=== PATIENT | male | born 1960 | race Caucasian/White ===

== ENCOUNTER 2018-12-16 15:59 | Inpatient (IN) | payer BC ==
--- NOTE | 2018-12-16 16:18 | PDOC ---
Rapid Medical Evaluation Time Seen by Provider: 12/16/18 16:13 Medical Evaluation: Allergies Allergy/AdvReac Type Severity Reaction Status Date / Time No Known Allergies Allergy Verified 12/16/18 16:13 12/16/18 16:13 Pt c/o: fevr since wednesday evening 104,took tylenol this am, headache x 2 days, rash to back x 2 weeks, - swabs, on abx can't recall Pt on brief exam:100.7, 102, noted scattered papular rash to back and upper arms Pt ordered for: labs, urine, blood cx, lactic acid Pt proceed to the ED Discharge Disposition - Diagnosis Sepsis, CHE (acute kidney injury), Folliculitis - Referrals - Patient Instructions - Post Discharge Activity
[2018-12-16] MEDS ORDERED: SODIUM CHLORIDE 1,000 ML IV STA (16:19)
[2018-12-16] MEDS ORDERED: ACETAMINOPHEN 500 MG TABLET (FP) PO ONE (16:19)
[2018-12-16 17:00] LABS: BASO % 0.1 % (0-2.0); EOS % 7.6 % (0-4.5); HEMATOCRIT 39.3 % (35.4-49); HEMOGLOBIN 13.6 GM/dL (11.7-16.9); LYMPH % 6.9 % (8-40); MCH 31.5 pg (25.7-33.7); MCHC 34.7 g/dl (32.0-35.9); MEAN CELL VOLUME 90.8 fl (80-96); MEAN PLT VOLUME 8.1 fl (7.5-11.1); MONO % 9.6 % (3.8-10.2); NEUT % 75.8 % (42.8-82.8); PLATELET COUNT 142 K/MM3 (134-434); RBC 4.33 M/mm3 (4.00-5.60); RDW 14.8 % (11.9-15.9); WHITE BLOOD COUNT 4.3 K/mm3 (4.0-10.0)
[2018-12-16 17:30] LABS: ALBUMIN 3.5 g/dl (3.4-5.0); ALK PHOS 84 U/L (45-117); ANION GAP 5 MMOL/L (8-16); BILIRUBIN,TOTAL 0.4 mg/dL (0.2-1); BLOOD UREA NITROGEN 28.3 mg/dL (7-18); CALCIUM 8.2 mg/dL (8.5-10.1); CHLORIDE 104 mmol/L (98-107); CO2 27 mmol/L (21-32); CREATININE 2.2 mg/dL (0.55-1.3); GLUCOSE,RANDOM 89 mg/dL (74-106); POTASSIUM 4.6 mmol/L (3.5-5.1); SGOT/AST 25 U/L (15-37); SGPT/ALT 31 U/L (13-61); SODIUM 137 mmol/L (136-145); TOT PROT 6.6 g/dl (6.4-8.2)
[2018-12-16] MEDS ORDERED: ACETAMINOPHEN 325 MG TABLET (FP) ONE (17:51)
--- NOTE | 2018-12-16 17:52 | PDOC ---
History of Present Illness - General Stated Complaint: HIGH FEVER Time Seen by Provider: 12/16/18 16:13 - History of Present Illness Initial Comments: 12/16/18 17:51 58 yo M PMH HTN, HLD, BPH, osteoarthritis s/p multiple L knee and R knee replacements, diastasis recti with multiple fat-filled umbilical and inguinal hernias, known rash since 11/05/18, checked 11/07/18 with negative VZV and negative HIV, concern for possible hot tub folliculitis on some abx (patient unsure what), presenting with fever since Wednesday. Patient reports that it is only when he is lying down, and resolves after walking around. Had also been responsive to Tylenol until today, when it remained 103.4F despite treatment. Patient reports for the past 3 days, he has had incomplete voiding of urine, going frequently and only getting small amounts of urine out each time. Further complains of fatigue and SOB with exertion for indeterminate time period. Further endorses ongoing nausea w/o vomiting, reduced appetite, and THORNTON. Denies CP, abdominal pain, constipation/diarrhea. Past History - Past Medical History Allergies/Adverse Reactions: Allergies Allergy/AdvReac Type Severity Reaction Status Date / Time No Known Allergies Allergy Verified 12/16/18 16:13 Home Medications: Ambulatory Orders Amitriptyline HCl [Elavil -] 20 mg PO HS 12/16/18 Atorvastatin Calcium [Lipitor] 10 mg PO HS 12/16/18 Celecoxib [Celebrex] 200 mg PO BID 12/16/18 Cyclobenzaprine HCl 10 mg PO TID 12/16/18 Gabapentin 600 mg PO QID 12/16/18 HYDROmorphone [Dilaudid -] 2 mg PO BID PRN 12/16/18 Lisinopril 10 mg PO DAILY 12/16/18 Sulfamethoxazole/Trimethoprim [Bactrim Ds -] 1 tab PO BID 12/16/18 Valacyclovir HCl [Valtrex -] 1 tab PO TID 12/16/18 Anemia: No Asthma: No Cancer: No Cardiac Disorders: No CVA: No COPD: No CHF: No Dementia: No Diabetes: No GI Disorders: No Disorders: No HTN: No Hypercholesterolemia: No Liver Disease: No Seizures: No Thyroid Disease: No - Surgical History Abdominal Surgery: Yes (LAPAROSCOPIC BAND PLACEMENT AND REMOVAL) Appendectomy: No Cardiac Surgery: No Cholecystectomy: No Lung Surgery: No Neurologic Surgery: No Orthopedic Surgery: Yes (RIGHT KNEE REPLACEMENT REVISION AND MULTIPULE KNEE SURGERY,) - Psycho Social/Smoking Cessation Hx Smoking History: Former smoker Have you smoked in the past 12 months: No Number of Cigarettes Smoked Daily: 16 If you are a former smoker, when did you quit?: JAN 13 2001 Information on smoking cessation initiated: No Hx Alcohol Use: Yes (RARE) Drug/Substance Use Hx: Yes Substance Use Type: Alcohol, Prescribed Hx Substance Use Treatment: No Review of Systems - Review of Systems Able to Perform ROS?: Yes Constitutional: Yes: Fever. No: Chills, Diaphoresis HEENTM: No: Recent change in vision, Hearing Loss, Throat Swelling, Mouth Pain, Difficulty Swallowing Respiratory: Yes: Cough (raspy), SOB with Exertion. No: Orthopnea, Shortness of Breath Cardiac (ROS): No: Chest Pain, Edema, Irregular Heart Rate, Lightheadedness, Palpitations, Chest Tightness ABD/GI: Yes: Nausea (chronic), Poor Appetite. No: Constipated, Diarrhea, Vomiting : Yes: Other (incomplete voiding) Neurological: Yes: Headache. No: Numbness, Tingling, Tremors, Weakness *Physical Exam - Vital Signs Last Vital Signs Temp Pulse Resp BP Pulse Ox 100.7 F H 106 H 20 109/70 97 12/16/18 16:16 12/16/18 16:16 12/16/18 16:16 12/16/18 16:16 12/16/18 16:16 ED Treatment Course - LABORATORY CBC & Chemistry Diagram: 12/16/18 16:34 12/16/18 16:34 - ADDITIONAL ORDERS Additional order review: Laboratory Results 12/16/18 12/16/18 16:35 16:34 Sodium 137 Potassium 4.6 Chloride 104 Carbon Dioxide 27 Anion Gap 5 L BUN 28.3 H Creatinine 2.2 H Est GFR (CKD-EPI)AfAm 36.90 Est GFR (CKD-EPI)NonAf 31.84 Random Glucose 89 Lactic Acid 2.1 H Calcium 8.2 L Total Bilirubin 0.4 AST 25 ALT 31 Alkaline Phosphatase 84 Total Protein 6.6 Albumin 3.5 12/16/18 16:34 RBC 4.33 MCV 90.8 MCHC 34.7 RDW 14.8 MPV 8.1 Neutrophils % 75.8 Lymphocytes % 6.9 L D Monocytes % 9.6 Eosinophils % 7.6 H D Basophils % 0.1 - Medications Given in the ED: ED Medications Discontinued Medications Generic Name Dose Route Start Last Admin Trade Name John PRN Reason Stop Dose Admin Acetaminophen 975 mg 12/16/18 16:19 12/16/18 17:47 Tylenol - PO 12/16/18 16:20 975 mg ONCE ONE Administration Sodium Chloride 1,000 mls @ 1,000 mls/hr 12/16/18 16:19 12/16/18 17:47 Normal Saline - IV 12/16/18 17:18 1,000 mls/hr ASDIR STA Administration Medical Decision Making - Medical Decision Making 12/16/18 17:56 Concern for fever 2/2 UTI. - CBC, CMP, BNP, trop, lactic acid - Chest X ray - tylenol POCUS bladder scan with 117 ml, enlarged prostate, no hydronephrosis, large L renal cyst. 12/16/18 17:57 Lactic acid 2.2, Cr 2.2 from normal baseline. CHE, likely UTI sepsis 2/2 postrenal etiology. 12/16/18 18:41 EKG normal sinus at 91 bpm. 12/16/18 18:55 CXR no acute pathology. 12/16/18 19:09 CT chest for fatigue/SOB. 12/16/18 20:47 CT chest with multiple findings. Areas of interstitial thickening in R middle lobe suggestive of small infiltrates, multiple small noncalcified b/l pulmonary nodules requiring follow-up CT in 3 months, mildly prominent subcarinal mediatinal lymph node requiring same follow up, 4.5 X 3cm lesion in R lower paratracheal region concerning for large thyroid nodule. Discharge - Discharge Information Problems reviewed: Yes Clinical Impression/Diagnosis: Sepsis, CHE (acute kidney injury), Folliculitis - Follow up/Referral Referrals: Citlalli Yu MD [Primary Care Provider] - - Patient Discharge Instructions - Post Discharge Activity
[2018-12-16] MEDS ORDERED: VANCOMYCIN 1 GM in D5W (PRE-DOCKED) 1,000 MG/250 ML IVPB ONE (19:08)
--- NOTE | 2018-12-16 19:18 | PDOC ---
Documentation entered by Jose Carlos Reyes SCRIBE, acting as scribe for Gerald Anders MD. Gerald Anders MD: This documentation has been prepared by the Eric blanco Daniel, SCRIBE, under my direction and personally reviewed by me in its entirety. I confirm that the documentation accurately reflects all work, treatment, procedures, and medical decision making performed by me. Attending Attestation - Resident Resident Name: OroscoGabrieleton - ED Attending Attestation I have performed the following: I have examined & evaluated the patient, The case was reviewed & discussed with the resident, I agree w/resident's findings & plan - HPI HPI: 12/16/18 17:43 The patient is a 58 year old male with a past medical history of HTN, spinal spondylosis, hernia, ruptured disc, and HLD here today for evaluation of fever since wednesday (12/13/18). The patient reports that he has had a fever since wednesday which was alleviated with tylenol except today and he noted his temperature to be 103.9. Patient states that his fever is intermittent and his temperature only spikes when he is sleeping. He reports chills when he has a fever and diaphoresis when his fever subsides. Patient states that he has had poor PO intake recently due to nausea. He also notes a diffuse rash across his chest, back, and right arm for the past 2 weeks. He also reports feeling fatigued recently especially when climbing stairs and notes dyspnea on exertion. Patient denies headache, lightheadedness. Denies chills. Denies vomiting, diarrhea, abdominal pain. Allergies: NKA PCP: Citlalli Yu - Physicial Exam PE: 12/16/18 18:53 GENERAL: The patient is awake, alert, and fully oriented, in no acute distress. HEAD: Normal with no signs of trauma. EYES: Pupils equal, round and reactive to light, extraocular movements intact, sclera anicteric, conjunctiva clear with no pallor. ENT: Ears normal, nares patent, oropharynx clear without exudates. Moist mucous membranes. NECK: Normal range of motion, supple without lymphadenopathy, JVD, or masses. LUNGS: Breath sounds equal, clear to auscultation bilaterally. No wheeze/ crackles. HEART: Regular rate and rhythm, normal S1 and S2 without murmur or rub. ABDOMEN: +abdominal hernia as noted in resident exam. Soft/nontender/ nondistended. BS wnl. No guarding or rebound. No hepatosplenomegaly. EXTREMITIES: Normal range of motion, no edema. No clubbing or cyanosis. No cords, erythema, or tenderness. NEUROLOGICAL: Cranial nerves II through XII grossly intact. Normal speech, normal gait. PSYCH: Normal mood, normal affect. SKIN: +scattered folliculitis on the face, upper extremities, chest, and back. Warm, Dry, normal turgor. - Medical Decision Making 12/16/18 19:10 58-year-old male with history of hypertension and high cholesterol presents with 1 to 2 weeks of progressive generalized weakness and fatigue with exertion , sleeping most of the day, sob with exertion but no chest pain. no focal infectious sxs, had exacerbation of his folliculitis and started on abx by urgent care, who also tested labs/cxr/HIV and wnl. fever/tachy, resolved after tylenol Exam as noted, lungs are clear, no edema or calf tenderness 58-year-old male with hypertension and high cholesterol, distant smoking history p/w subacute generalized weakness and fatigue and now fever x3d. no source on history/exam, ? metabolic/endocrine, ? neoplasm, ? cardiac. low risk for PE, lower suspicion given he fevers. labs, ua ekg, cxr without acute pathology --> ct chest empiric abx admit 12/16/18 19:32 labs notable for acute renal injury, cxr clear with ct chest pending. add on TSH empiric with gram + coverage for the folliculitis. Heart Score/ECG Review #1 ECG reviewed & interpreted by me at: 18:35 General ECG Interpretation: Sinus Rhythm, Normal Rate (91), Normal Intervals ( qtc 403), No acute ischemic changes
[2018-12-16] MEDS: PIPERACILLIN/TAZOB 3.375 GM 3.375 GM in DEXTROSE 5%-WATER - 50 ML IVPB SCH (19:31)
[2018-12-16] MEDS ORDERED: PIPERACILLIN/TAZOB 3.375 GM 3.375 GM/50 ML BAG IVPB ONE (19:42)
[2018-12-16] MEDS ORDERED: VANCOMYCIN 1 GRAM (PRE-DOCKED) 1,000 MG/250 ML BAG IVPB ONE (19:42)
[2018-12-16 21:41] LABS: URINE APPEARANCE CLOUDY; URINE BILIRUBIN NEGATIVE (NEGATIVE); URINE COLOR YELLOW; URINE GLUCOSE (UA) NEGATIVE (NEGATIVE); URINE KETONE NEGATIVE (NEGATIVE); URINE LEUK ESTERASE NEGATIVE (NEGATIVE); URINE NITRITE NEGATIVE (NEGATIVE); URINE PROTEIN NEGATIVE (NEGATIVE); URINE UROBILINOGEN 0.2 mg/dL (0.2-1.0)
--- NOTE | 2018-12-16 22:43 | PN ---
Teaching Attending Note Name of Resident: Vanita Parker ATTENDING PHYSICIAN STATEMENT I saw and evaluated the patient. I reviewed the resident's note and discussed the case with the resident. I agree with the resident's findings and plan as documented. SUBJECTIVE: 58 yo M PMH HTN, HLD, BPH, osteoarthritis complains of rash which started on his back and chest that he noticed on December 07. Rash was vesicular papular and started on his back and chest and extended to abdomen and lesser involvement on his extremities. It was mildly painful and nonpruritic. He was seen in urgent care that day and prescribed Valtrex and Bactrim. As per patient he was measles, mumps, rubella, HIV were ruled out. He claims that he was tested also for VZV and that was negative however documentation at this time is lacking. Patient also stated that department of health and [facility] were involved and he was allegedly cleared to leave the urgent care center. He complained of high fevers which started this past Wednesday on 13 December. Fevers he measured were up to 104 Fahrenheit and cyclical. Associated with severe headache. He denied any recent exotic travels. He mentioned that he traveled to [facility] recently however did not go on any water rides or hot tubs. No exposure to animals and no take or other insect bites that he had noted. Patient also endorses photophobia and nausea. He lives with his and children and reported that his family members are healthy.He also reported that he had chickenpox as a child. Patient was treated empirically with vancomycin and Zosyn in the emergency department. OBJECTIVE: Last Vital Signs Temp Pulse Resp BP Pulse Ox 99.3 F 95 H 17 131/77 100 12/16/18 21:52 12/16/18 21:52 12/16/18 21:52 12/16/18 21:52 12/16/18 21:52 GENERAL: Well developed, well nourished. Awake and alert. No acute distress. HEENT: Normocephalic, atraumatic. PERRLA, EOMI. No conjunctival pallor. Sclera are non- icteric. Moist mucous membranes. Oropharynx is clear. No Koplik spots identified NECK: Supple. Full ROM. No JVD. Carotid pulses 2+ and symmetric, without bruits. No thyromegaly. No lymphadenopathy. CARDIOVASCULAR: Regular rate and rhythm. No murmurs, rubs, or gallops. Distal pulses are 2+ and symmetric. PULMONARY: No evidence of respiratory distress. Lungs clear to auscultation bilaterally. No wheezing, rales or rhonchi. ABDOMINAL: Soft. Obese Non-tender. Non-distended. No rebound or guarding. No organomegaly. Normoactive bowel sounds. MUSCULOSKELETAL Normal range of motion at all joints. No bony deformities or tenderness. No CVA tenderness. EXTREMITIES: No cyanosis. No clubbing. No edema. No calf tenderness. SKIN: Vesicular lesions noted on back, chest, abdomen, less so on arms and lower extremities. Some lesions are crusted however there are also fresh vesicular lesions. NEUROLOGICAL: Kernig and Brudzinski signs were negative. There are no nuchal rigidity appreciated. No focal neurological deficits PSYCHIATRIC: Cooperative. Good eye contact. Appropriate mood and affect. Abnormal Lab Results 12/16/18 12/16/18 12/16/18 16:34 16:34 16:35 Lymphocytes % 6.9 L D Eosinophils % 7.6 H D Anion Gap 5 L BUN 28.3 H Creatinine 2.2 H Lactic Acid 2.1 H Calcium 8.2 L Imaging studies reviewed CT of chest was appreciated was noted to have a 1 x 0.4 cm noncalcified pleural- based nodule along posterior border of right oblique fissure at the level of mid to lower chest. Mildly prominent subcarinal mediastinal lymph node is noted with a 1 cm short axis diameter. Focal low-attenuation lesion within the right lower paratracheal region measuring at least 4.5 x 3 cm probably representing a large thyroid nodule ASSESSMENT AND PLAN: 58-year-old male with Sepsis, cyclic fevers severe headache and vesicular rash on torso, abdomen, extremities highly suspicious for varicella. Very characteristic rash.Severe headache and photophobia along with cyclic fevers are worrisome for possible [employer] involvement such as VZV encephalitis/ meningitis.At this time patient is believed to be immunocompetent.Differential diagnosis at this time is limited however Rickettsia may also be ruled out. There may have been seeded bacteremia from scratching of rash. Noted to have slight eosinophilia however low suspicion for drug rash or parasitic component at this time. No history of exotic travel. Admit to [facility] Blood cultures x2 Head CT UA and urine culture Airborne and contact isolation ID consult Neurology consult for LP CSF must be sent for protein, glucose, cell count with differential, Gram stain , culture, encephalitis/meningitis multiplex PCR, HSV 1 and 2 PCR, VZV PCR IV acyclovir renally dosed Ampicillin IV renally dosed Ceftriaxone 2 g stat Vancomycin by levels Obtain medical records that were from urgent care center HIV serology if not done at urgent care Rickettsia serology Respiratory multiplex PCR IV fluid hydration Repeat lactate #AKImay be secondary to sepsis syndrome IV fluid hydration Avoid nephrotoxins Renal sonogram #4.5 x 3 cm probably representing a large thyroid nodule TSH Thyroid sonogram DVT prophylaxis with heparin subcu
--- NOTE | 2018-12-16 23:08 | HP ---
CHIEF COMPLAINT: Intermittent fevers PCP: Dr. Yu HISTORY OF PRESENT ILLNESS: Patient is a 58 year old male with PMH of HTN, spinal sponylosis, hernia, and HLD who presents with 4 days of intermittent fevers. Pt reports that his fevers occur when he lays down to sleep and are associated with chills, but alleviate when he stands and walks around. He endorses general malaise and decreased po intake since the onset of fevers. He complains of headaches and photophobia as well as 2 episodes of NBNB vomiting. Denies any diarrhea or abd pain. He also complains of urinary frequency but can only urinate a small amount at a time. Of note, pt developed a diffuse rash/excoriations on his back, chest, and face about 10 days ago. The rash is painful and itchy. He went to urgent care where blood tests were done, all of which were negative (measles, mumps, varicella, HIV). Per pt, he was started on Valtrex and completed his prescription, but the rash did not improve. He states that his doctor then started him on Bactrim for Hot Tub Folliculitis. He has been taking bactrim for 3 days (today is 4th day). Pt reports that he received the chicken pox as a child and is up to date on all other vaccinations. ER course was notable for: (1) Febrile, tachycardic, lactate 2.1 (2) Given 1gm vanc and 3.375gm Q8H zosyn (3) Recent Travel: denies PAST MEDICAL HISTORY: As above PAST SURGICAL HISTORY: None Social History: Smoking: denies Alcohol: denies Drugs: denies Allergies No Known Allergies Allergy (Verified 12/16/18 16:13) HOME MEDICATIONS: Home Medications Medication Instructions Recorded Amitriptyline HCl [Elavil -] 20 mg PO HS 12/16/18 Atorvastatin Calcium [Lipitor] 10 mg PO HS 12/16/18 Celecoxib [Celebrex] 200 mg PO BID 12/16/18 Cyclobenzaprine HCl 10 mg PO TID 12/16/18 Gabapentin 600 mg PO QID 12/16/18 HYDROmorphone [Dilaudid -] 2 mg PO BID PRN 12/16/18 Lisinopril 10 mg PO DAILY 12/16/18 Sulfamethoxazole/Trimethoprim 1 tab PO BID 12/16/18 [Bactrim Ds -] Valacyclovir HCl [Valtrex -] 1 tab PO TID 12/16/18 REVIEW OF SYSTEMS CONSTITUTIONAL: fever, chills, diaphoresis Absent: generalized weakness, malaise, loss of appetite, weight change HEENT: Absent: rhinorrhea, nasal congestion, throat pain, throat swelling, difficulty swallowing, mouth swelling, ear pain, eye pain, visual changes CARDIOVASCULAR: Absent: chest pain, syncope, palpitations, irregular heart rate, lightheadedness , peripheral edema RESPIRATORY: cough Absent: shortness of breath, dyspnea with exertion, orthopnea, wheezing, stridor , hemoptysis GASTROINTESTINAL: vomiting, decreased appetite Absent: abdominal pain, abdominal distension, nausea, diarrhea, constipation, melena, hematochezia GENITOURINARY: hesitancy, frequency Absent: dysuria, urgency, hematuria, flank pain, genital pain MUSCULOSKELETAL: Absent: myalgia, arthralgia, joint swelling, back pain, neck pain SKIN: rash, itching Absent: pallor HEMATOLOGIC/IMMUNOLOGIC: Absent: easy bleeding, easy bruising, lymphadenopathy, frequent infections ENDOCRINE: Absent: unexplained weight gain, unexplained weight loss, heat intolerance, cold intolerance NEUROLOGIC: Absent: headache, focal weakness or paresthesias, dizziness, unsteady gait, seizure, mental status changes, bladder or bowel incontinence PSYCHIATRIC: Absent: anxiety, depression, suicidal or homicidal ideation, hallucinations. PHYSICAL EXAMINATION Vital Signs - 24 hr 12/16/18 16:16 Temperature 100.7 F H Pulse Rate 106 H Respiratory 20 Rate Blood Pressure 109/70 O2 Sat by Pulse 97 Oximetry (%) GENERAL: Awake, alert, and fully oriented, in no acute distress. HEAD: Normal with no signs of trauma. EYES: Pupils equal, round and reactive to light, extraocular movements intact, sclera anicteric, conjunctiva clear. No lid lag. EARS, NOSE, THROAT: Ears normal, nares patent, oropharynx clear without exudates. Moist mucous membranes. NECK: Normal range of motion, supple without lymphadenopathy, JVD, or masses. LUNGS: Coarse breath sounds. No wheezes, and no crackles. No accessory muscle use. HEART: Regular rate and rhythm, normal S1 and S2 without murmur, rub or gallop. ABDOMEN: Soft, nontender, not distended, normoactive bowel sounds, no guarding, no rebound, No hepatomegaly or splenomegaly. Reducible epigastric, umbilical, and inguinal hernias. MUSCULOSKELETAL: Normal range of motion at all joints. No bony deformities or tenderness. No CVA tenderness. UPPER EXTREMITIES: 2+ pulses, warm, well-perfused. No cyanosis. No clubbing. No peripheral edema. LOWER EXTREMITIES: 2+ pulses, warm, well-perfused. No calf tenderness. No peripheral edema. NEUROLOGICAL: Cranial nerves II-XII intact. Normal speech. Normal gait. PSYCHIATRIC: Cooperative. Good eye contact. Appropriate mood and affect. SKIN: Scattered folliculitis on back, chest, and face. Several lesions are scabbed. Laboratory Results - last 24 hr CBC, BMP 12/16/18 16:34 12/16/18 16:34 ASSESSMENT/PLAN: Patient is a 58 year old male with PMH of HTN, spinal sponylosis, hernia, and HLD who presents with 4 days of intermittent fevers and diffuse folliculitis. #Sepsis, unknown source Given pt's headache, photophobia, and rash, cannot r/o meningitis/ encephalitis CT head ordered Start acyclovir 1gm, ampicillin 2gm, ceftriaxone 1gm, and zosyn 3.75mg Q8H empirically UA: negative CXR: no acute pathology CT chest: small infiltrates in within R middle lobe, small noncalcified nodules, mild prominent mediastinal lymph node, fodal low-attenuation lesion in R lower lobe probably a large thyroid nodule. F/u blood and urine cx F/u ESR and CRP Neuro consulted ID consulted Airborne precautions F/u [place] records #CHE likely 2/2 sepsis and vol depletion Cr: 2.2 Hydrate @ IV NS 150ml/hr Cont to monitor kidney function #Incidental CT findings Large thyroid nodule: F/u TSH Recommend US of thyroid Noncalcified nodules Recommend pulm f/u outpt #HTN Resume home meds when hemodynamically stable #HLD Cont lipitor 10mg HS #DVT ppx Heparin SQ TID #FEN Sodium controlled diet IV NS @ 150ml/hr #Dispo Monitor on med-surg ATTENDING PHYSICIAN STATEMENT I saw and evaluated the patient. I reviewed the resident's note and discussed the case with the resident. I agree with the resident's findings and plan as documented. SUBJECTIVE: OBJECTIVE: ASSESSMENT AND PLAN:
[2018-12-16] MEDS ORDERED: CEFTRIAXONE 1,000 MG in DEXTROSE 5%-WATER - 50 ML IVPB ONE (23:18)
[2018-12-17] MEDS ORDERED: ONDANSETRON 4 MG/2 ML VIAL IVPB ONE (01:32)
[2018-12-17] MEDS ORDERED: ACETAMINOPHEN 1000 MG/100 ML VIAL (NON FORMULARY) IVPB ONE ×3 (01:33→19:03)
[2018-12-17] MEDS ORDERED: PIPERACILLIN/TAZOBACTAM 3.375 GM VIAL IVPB ONE (01:44)
[2018-12-17] MEDS ORDERED: DEXTROSE 5%-WATER - 50 ML IVPB ONE ×2 (01:45→09:05)
[2018-12-17] MEDS: HEPARIN NA (PORCINE) 5,000 UNITS/ML 1ML VIAL SQ SCH ×2 (02:16→06:54)
[2018-12-17] MEDS: PIPERACILLIN/TAZOB 3.375 GM 3.375 GM in DEXTROSE 5%-WATER - 50 ML IVPB SCH (02:18)
[2018-12-17] MEDS ORDERED: ACYCLOVIR INJECTION 1,000 MG in DEXTROSE 5%-WATER - 100 ML IVPB SCH (02:30)
[2018-12-17] MEDS ORDERED: AMPICILLIN - 2 GM in SODIUM CHLORIDE 100 ML IVPB SCH (03:00)
[2018-12-17] MEDS: SODIUM CHLORIDE 1,000 ML IV SCH ×2 (05:22→20:37)
[2018-12-17] MEDS: ACYCLOVIR INJECTION 800 MG in DEXTROSE 5%-WATER - 250 ML IVPB SCH ×3 (05:24→20:37)
[2018-12-17] MEDS: AMPICILLIN - 2 GM in SODIUM CHLORIDE 100 ML IVPB SCH ×2 (06:53→09:20)
[2018-12-17] MEDS ORDERED: cefTRIAXone SODIUM 1 GM VIAL ONE (09:05)
[2018-12-17] MEDS ORDERED: PT OWN MED DRAWER 7, Y5N ONE ×5 (09:05→21:28)
[2018-12-17] MEDS ORDERED: CEFTRIAXONE 1 GM in DEXTROSE 5%-WATER - 50 ML IVPB SCH (10:00)
[2018-12-17] MEDS: ONDANSETRON 4 MG/2 ML VIAL IVPUSH PRN ×2 (10:44→19:50)
[2018-12-17 10:58] LABS: COCAINE, UR NEGATIVE ng/ml (CUTOFF=300); METHADONE, UR NEGATIVE ng/ml (CUTOFF=300); PHENCYCLIDINE,URINE NEGATIVE ng/ml (CUTOFF=25); URINE AMPHETAMINES NEGATIVE ng/ml (CUTOFF=500); URINE BARBITURATES NEGATIVE ng/ml (CUTOFF=200); URINE BENZODIAZEPINES NEGATIVE ng/ml (CUTOFF=200)
[2018-12-17 11:01] LABS: OPIATES, URI POSITIVE ng/ml (CUTOFF=300)
[2018-12-17 11:11] LABS: BASO % 0.3 % (0-2.0); EOS % 8.5 % (0-4.5); HEMATOCRIT 36.6 % (35.4-49); HEMOGLOBIN 12.3 GM/dL (11.7-16.9); LYMPH % 11.9 % (8-40); MCH 30.2 pg (25.7-33.7); MCHC 33.7 g/dl (32.0-35.9); MEAN CELL VOLUME 89.8 fl (80-96); MEAN PLT VOLUME 7.6 fl (7.5-11.1); MONO % 11.1 % (3.8-10.2); NEUT % 68.2 % (42.8-82.8); PLATELET COUNT 126 K/MM3 (134-434); RBC 4.07 M/mm3 (4.00-5.60); RDW 14.9 % (11.9-15.9); WHITE BLOOD COUNT 3.3 K/mm3 (4.0-10.0)
--- NOTE | 2018-12-17 12:16 | PN ---
Progress Note (short form) - Note Progress Note: ID consult dictated over one hour spent in the care of this patient 58 yo man on disability due to chronic pain issues went to [facility] on WednesdayDecember 03 for [place]- no water exposure on Wednesday he developed a rash on his back /shoulder and face, no fevers-very painful on Wednesday [facility] and was evaluated for his rash- they were concerned about possible varicella- he was started on valtrex and went home on isolation varicella PCR was negative and HIV was negative [facility] was contacted and he had the vesicles swabbed- he was contacted by Gem from [facility] on Saturday 12/09 and told his isolation was discontinued he was contacted by Dr Powers from [facility] and placed on bactrim on Wednesday for possible folliculitis hsi rash has improved per his family on Wednesday he started having persistent bitemporal headache and high grade fevers with nausea that has continued to he came to ED last night no vomiting no diarrhea +constipation confirms rash is improved he has completed one week of valtrex and is taking bactrim- last dose was yesterday am he is alert, not confused no nuchal rigidity with persistent fevers and severe headache for 4 days I think it would be reasonable to do an LP to r/o viral meningitis doubt hsv or varicella as he has completed one week of valtrex will hold further acyclovir given elevated creatinine and negative workup by elvira and [facility] would send LP for cell count, glucose, protein, routine culture and viral encephalitis panel-routine viral panel - hsv and vzv pcr too would repeat HIV testing will send tick workup given leukopenia ?viral exanthem- consider dermatolgy evaluation lastly this could all be bactrim allergy with eosinophilia and fever/headache ( but diagnosis of exclusion) will treat with rocephin/doxy/vancomycin await LP (d/w hospitalist) continue isolation check RPR too I reviewed labs from [facility] and spoke to dr powers there I d/w patient and at bedside I d/w hospitalist Problem List - Problems (1) Fever Code(s): R50.9 - FEVER, UNSPECIFIED (2) Headache Code(s): R51 - HEADACHE (3) Rash and nonspecific skin eruption Code(s): R21 - RASH AND OTHER NONSPECIFIC SKIN ERUPTION
[2018-12-17 12:40] LABS: ERYTHROCYTE SEDIMENTATION RATE 13 mm/hr (0-20)
[2018-12-17 12:42] VITALS: BMI 33.6
[2018-12-17 13:17] LABS: ALBUMIN 2.9 g/dl (3.4-5.0); BILIRUBIN,TOTAL 0.4 mg/dL (0.2-1); BLOOD UREA NITROGEN 16.6 mg/dL (7-18); CALCIUM 7.5 mg/dL (8.5-10.1); CREATININE 1.3 mg/dL (0.55-1.3); POTASSIUM 3.6 mmol/L (3.5-5.1); TOT PROT 5.7 g/dl (6.4-8.2)
[2018-12-17] MEDS ORDERED: DEXTROSE 5%-WATER 100 ML IVPB ONE ×2 (14:02→21:08)
[2018-12-17 14:22] LABS: ALBUMIN 3.2 g/dl (3.4-5.0); BILIRUBIN,TOTAL 0.4 mg/dL (0.2-1); BLOOD UREA NITROGEN 16.9 mg/dL (7-18); CREATININE 1.4 mg/dL (0.55-1.3); MAGNESIUM 2.1 mg/dL (1.8-2.4); PHOSPHOROUS 2.9 mg/dL (2.5-4.9); POTASSIUM 4.2 mmol/L (3.5-5.1); TOT PROT 6.1 g/dl (6.4-8.2)
[2018-12-17 14:29] LABS: INR 1.03 (0.83-1.09); PROTHROMBIN TIME (PATIENT) 12.1 SEC (9.7-13.0)
[2018-12-17] MEDS: DOXYCYCLINE INJECTION 100 MG in DEXTROSE 5%-WATER - 100 ML IVPB SCH ×2 (14:34→21:29)
[2018-12-17] MEDS: CEFTRIAXONE 2 GM in DEXTROSE 5%-WATER 100 ML IVPB SCH ×2 (14:35→21:26)
--- NOTE | 2018-12-17 14:53 | PN ---
Progress Note (short form) - Note Progress Note: SUBJECTIVE: Complains of fevers, headache, light sensitivity. Rash resolving. No neck stiffness. No limb numbness/weakness. No seizures. Wants to leave to repair the heat and water in his home. OBJECTIVE: Afebrile, Hemodynamically Stable. Last Vital Signs Temp Pulse Resp BP Pulse Ox 98.0 F 87 18 117/61 96 12/17/18 09:17 12/17/18 09:17 12/17/18 09:17 12/17/18 09:17 12/16/18 23:00 HEENT - Atraumatic, Normocephalic Heart - S1, S2, RRR Lungs - clear to auscultation Abdomen - Soft, non-tender. Bowel Sounds normal. Extremities - no edema, no calf tenderness. Skin - resolving vesicular rash over torso and UEs. Neuro - AAO x 3. Tone/Power normal all extremities. Laboratory Results - last 24 hr 12/16/18 12/16/18 12/16/18 16:34 16:34 16:34 WBC 4.3 RBC 4.33 Hgb 13.6 Hct 39.3 MCV 90.8 MCH 31.5 MCHC 34.7 RDW 14.8 Plt Count 142 D MPV 8.1 Absolute Neuts (auto) 3.3 Neutrophils % 75.8 Lymphocytes % 6.9 L D Monocytes % 9.6 Eosinophils % 7.6 H D Basophils % 0.1 Nucleated RBC % 0 ESR PT with INR INR Sodium 137 Potassium 4.6 Chloride 104 Carbon Dioxide 27 Anion Gap 5 L BUN 28.3 H Creatinine 2.2 H Est GFR (CKD-EPI)AfAm 36.90 Est GFR (CKD-EPI)NonAf 31.84 Random Glucose 89 Hemoglobin A1c % Lactic Acid Calcium 8.2 L Phosphorus Magnesium Total Bilirubin 0.4 AST 25 ALT 31 Alkaline Phosphatase 84 Creatine Kinase 113 Troponin I < 0.02 C-Reactive Protein Total Protein 6.6 Albumin 3.5 TSH Urine Color Urine Appearance Urine pH Ur Specific [place] Urine Protein Urine Glucose (UA) Urine Ketones Urine Blood Urine Nitrite Urine Bilirubin Urine Urobilinogen Ur Leukocyte Esterase Random Vancomycin Opiates Screen Methadone Screen Barbiturate Screen Phencyclidine Screen Ur Amphetamines Screen MDMA (Ecstasy) Screen Benzodiazepines Screen Cocaine Screen U Marijuana (THC) Screen Influenza A (Rapid) Negative Influenza B (Rapid) Negative 12/16/18 12/16/18 12/17/18 16:35 21:00 06:00 WBC RBC Hgb Hct MCV MCH MCHC RDW Plt Count MPV Absolute Neuts (auto) Neutrophils % Lymphocytes % Monocytes % Eosinophils % Basophils % Nucleated RBC % ESR PT with INR INR Sodium Potassium Chloride Carbon Dioxide Anion Gap BUN Creatinine Est GFR (CKD-EPI)AfAm Est GFR (CKD-EPI)NonAf Random Glucose Hemoglobin A1c % Lactic Acid 2.1 H Calcium Phosphorus Magnesium Total Bilirubin AST ALT Alkaline Phosphatase Creatine Kinase Troponin I C-Reactive Protein Total Protein Albumin TSH Urine Color Yellow Urine Appearance Cloudy Urine pH 5.0 Ur Specific [place] 1.022 Urine Protein Negative Urine Glucose (UA) Negative Urine Ketones Negative Urine Blood Negative Urine Nitrite Negative Urine Bilirubin Negative Urine Urobilinogen 0.2 Ur Leukocyte Esterase Negative Random Vancomycin 2.4 L Opiates Screen Methadone Screen Barbiturate Screen Phencyclidine Screen Ur Amphetamines Screen MDMA (Ecstasy) Screen Benzodiazepines Screen Cocaine Screen U Marijuana (THC) Screen Influenza A (Rapid) Influenza B (Rapid) 12/17/18 12/17/18 12/17/18 09:30 10:56 10:56 WBC 3.3 L RBC 4.07 Hgb 12.3 Hct 36.6 MCV 89.8 MCH 30.2 MCHC 33.7 RDW 14.9 Plt Count 126 L MPV 7.6 Absolute Neuts (auto) 2.2 Neutrophils % 68.2 Lymphocytes % 11.9 D Monocytes % 11.1 H Eosinophils % 8.5 H Basophils % 0.3 Nucleated RBC % 0 ESR 13 PT with INR INR Sodium Potassium Chloride Carbon Dioxide Anion Gap BUN Creatinine Est GFR (CKD-EPI)AfAm Est GFR (CKD-EPI)NonAf Random Glucose Hemoglobin A1c % Lactic Acid Calcium Phosphorus Magnesium Total Bilirubin AST ALT Alkaline Phosphatase Creatine Kinase Troponin I C-Reactive Protein 3.2 H Total Protein Albumin TSH 0.78 Urine Color Urine Appearance Urine pH Ur Specific [place] Urine Protein Urine Glucose (UA) Urine Ketones Urine Blood Urine Nitrite Urine Bilirubin Urine Urobilinogen Ur Leukocyte Esterase Random Vancomycin Opiates Screen Positive A* Methadone Screen Negative Barbiturate Screen Negative Phencyclidine Screen Negative Ur Amphetamines Screen Negative MDMA (Ecstasy) Screen Negative Benzodiazepines Screen Negative Cocaine Screen Negative U Marijuana (THC) Screen Negative Influenza A (Rapid) Influenza B (Rapid) 12/17/18 12/17/1812/17/19 10:56 12:38 13:35 WBC RBC Hgb Hct MCV MCH MCHC RDW Plt Count MPV Absolute Neuts (auto) Neutrophils % Lymphocytes % Monocytes % Eosinophils % Basophils % Nucleated RBC % ESR PT with INR INR Sodium 140 138 Potassium 3.6 4.2 Chloride 106 104 Carbon Dioxide 28 30 Anion Gap 6 L 5 L BUN 16.6 16.9 Creatinine 1.3 1.4 H Est GFR (CKD-EPI)AfAm 69.71 63.73 Est GFR (CKD-EPI)NonAf 60.14 54.99 Random Glucose 85 112 H Hemoglobin A1c % 5.5 Lactic Acid Calcium 7.5 L 8.0 L Phosphorus 2.9 Magnesium 2.1 Total Bilirubin 0.4 0.4 AST 19 22 ALT 26 28 Alkaline Phosphatase 67 78 Creatine Kinase Troponin I C-Reactive Protein Total Protein 5.7 L 6.1 L Albumin 2.9 L 3.2 L TSH Urine Color Urine Appearance Urine pH Ur Specific [place] Urine Protein Urine Glucose (UA) Urine Ketones Urine Blood Urine Nitrite Urine Bilirubin Urine Urobilinogen Ur Leukocyte Esterase Random Vancomycin Opiates Screen Methadone Screen Barbiturate Screen Phencyclidine Screen Ur Amphetamines Screen MDMA (Ecstasy) Screen Benzodiazepines Screen Cocaine Screen U Marijuana (THC) Screen Influenza A (Rapid) Influenza B (Rapid) 12/17/18 13:35 WBC RBC Hgb Hct MCV MCH MCHC RDW Plt Count MPV Absolute Neuts (auto) Neutrophils % Lymphocytes % Monocytes % Eosinophils % Basophils % Nucleated RBC % ESR PT with INR 12.10 INR 1.03 Sodium Potassium Chloride Carbon Dioxide Anion Gap BUN Creatinine Est GFR (CKD-EPI)AfAm Est GFR (CKD-EPI)NonAf Random Glucose Hemoglobin A1c % Lactic Acid Calcium Phosphorus Magnesium Total Bilirubin AST ALT Alkaline Phosphatase Creatine Kinase Troponin I C-Reactive Protein Total Protein Albumin TSH Urine Color Urine Appearance Urine pH Ur Specific [place] Urine Protein Urine Glucose (UA) Urine Ketones Urine Blood Urine Nitrite Urine Bilirubin Urine Urobilinogen Ur Leukocyte Esterase Random Vancomycin Opiates Screen Methadone Screen Barbiturate Screen Phencyclidine Screen Ur Amphetamines Screen MDMA (Ecstasy) Screen Benzodiazepines Screen Cocaine Screen U Marijuana (THC) Screen Influenza A (Rapid) Influenza B (Rapid) Current Medications Generic Name Dose Route Start Last Admin Trade Name Freq PRN Reason Stop Dose Admin Sodium Chloride 1,000 mls @ 150 mls/hr 12/17/18 02:30 12/17/18 05:22 Normal Saline - IV 150 mls/hr ASDIR SIMONE Administration Ceftriaxone Sodium 2 gm/ 100 mls @ 200 mls/hr 12/17/18 13:15 Dextrose IVPB BID SIMONE Protocol Doxycycline Hyclate 100 mg/ 100 mls @ 100 mls/hr 12/17/18 12:45 Dextrose IVPB BID SIMONE Ondansetron HCl 4 mg 12/17/18 09:44 12/17/18 10:44 Zofran Injection IVPUSH 4 mg Q6H PRN Administration NAUSEA Home Medications Medication Instructions Recorded Amitriptyline HCl [Elavil -] 20 mg PO HS 12/16/18 Atorvastatin Calcium [Lipitor] 10 mg PO HS 12/16/18 Celecoxib [Celebrex] 200 mg PO BID 12/16/18 Cyclobenzaprine HCl 10 mg PO TID 12/16/18 Gabapentin 600 mg PO QID 12/16/18 HYDROmorphone [Dilaudid -] 2 mg PO BID PRN 12/16/18 Lisinopril 10 mg PO DAILY 12/16/18 Sulfamethoxazole/Trimethoprim 1 tab PO BID 12/16/18 [Bactrim Ds -] Valacyclovir HCl [Valtrex -] 1 tab PO TID 12/16/18 ASSESSMENT/PLAN: 58 year old male with history of Migraine (sees Dr. Vides), HTN, HLD, BPH, OA , presented with fever on background Hx of 10 days of vesicular rash, for which he was treated initially with Valtrex for 7 days, followed by Bactrim, with development of what appears to be cyclical fevers for the past [address] Chest - possible RML infiltrates. 1 x 0.4 cm noncalcified pleural-based nodule along posterior border of right oblique fissure at the level of mid to lower chest. Mildly prominent subcarinal mediastinal lymph node is noted with a 1 cm short axis diameter. Large spleen, hepatic steatosis. Focal low- attenuation lesion within the right lower paratracheal region measuring at least 4.5 x 3 cm probably representing a large thyroid nodule. CT head - no acute intracranial findings. CXR - no consolidation 1. Rash, possible VZV with associated fevers, photophobia, headache Completed 1 week Valtrex, subsequently placed on Bactrim Suspicion high for Meningitis. Blood Cx pending. Initially lymphopenic, resolved, but now mildly leukopenic. Eosinophilia + Empirically covered with Acyclovir, Ampicillin, ceftriaxone, Vancomycin initially - Abx now rationalized to Ceftriaxone and Doxycycline by ID ID also ordered Tick borne illness work-up, RPR. HIV pending. Neurology consulted - need for LP as requested by ID discussed with Dr. Vides who will evaluate the patient. IR contacted and case discussed with Dr. Howe, who informed me that he does not do LPs on weekends. Currently Afebrile, Hemodynamically Stable. Airborne and contact isolation precautions. 2. Questionable Pneumonia RML on CT Chest Cough +. Influenza A/B negative. Covered with Ceftriaxone/Doxy. Sputum Cx requested. 3. CHE secondary to dehydration/sepsis Resolved with IV fluids. Renal US - Bilateral Renal cysts. 4. Thyroid nodule on CT Chest - for Thyroid US - informed by radiology that this is not done as in-patient. 5. Pulmonary Nodules on CT Chest -for [address] follow up. 6. HTN - Normally on Lisinopril, now held due to CHE and borderline BP DVT Px - SCDs. Heparin SQ held in event of LP. Visit type - Emergency Visit Emergency Visit: Yes ED Registration Date: 12/16/18 Care time: The patient presented to the Emergency Department on the above date and was hospitalized for further evaluation of their emergent condition. - New Patient This patient is new to me today: Yes Date on this admission: 12/17/18 - Critical Care Critical Care patient: No - Discharge Referral Referred to [facility] Med P.C.: No
--- NOTE | 2018-12-17 16:15 | CONSULT ---
Consult - text type - Consultation Consultation Note: NEUROLOGY CONSULTATION is greatly appreciated: Events reviewed and discussed with Dr. Cuenca, Patient examined. This 58 yo RH man with h/o HTN and OA is s/p B/L TKR. Well known to me over many years with C6C7 HNP, Left C7 radiculopathy, chronic Low back pain, Migraine headaches and chronic nocturnal leg pains with insomnia attributed to RLS. Was on Pramipexole 1 mg TID and Gabapentin 400 mg TID until this past spring. Last sen by me 11/18/17. Now admitted after 2 weeks of diffuse rash and 3 days of headache and fever. Rash was evaluated at [facility] around 12/07 in the absence of fever or headache. Apparently had extensive viral studies sent without Dx. Three days [employer] developed waxing and waning fevers, worst at night, associated with Bitemporal pressing headaches with photophobia-worst in the evening and night with highter temps. No nausea, no neck pain or stiffness, no change in alertness or cognition. CT of head (reviewed): normal Leukopenia and mild thrombocytopenia noted. On multiple antibioticsa and acyclovir ANN: No Nuchal rigidity. Neg. Kernigs. Difuse scabbing punctate rashes. NEURO: MS/speech: Normal CN II-XII: normal Motor: No drift or tremor. Normal strength, tone and reflexes except decreased KJ's. Downgoing toes. Coord: No FTN dystaxia Sensory: Normal. Romberg neg Gait: Normal IMP: Probable viral syndrome with aseptic meningitis. Varicella Consider also non-infectious etiology such as vasculitis/MCVD. SUGGEST: Continue current Rx., especially acyclovir. Check JORDIN, RF, agree with LP. Although I doubt it will alter therapy, it may aid in academic diagnosis. Pt agrees to proceed. Will attempt LP in AM. Please repeat platelet count in AM before LP. Thank you very much, Jadon Vides MD
[2018-12-17] MEDS: VANCOMYCIN 1 GRAM (PRE-DOCKED) 1,000 MG/250 ML BAG IVPB SCH (17:51)
[2018-12-17] MEDS: CYCLOBENZAPRINE HCL 10 MG TABLET (FP) PO SCH ×2 (17:51→21:26)
[2018-12-17] MEDS: GABAPENTIN 300 MG CAPSULE (FP) PO SCH ×2 (17:51→21:28)
[2018-12-17] MEDS ORDERED: ACYCLOVIR 1000 MG (50MG/ML) VIAL IVPB SCH (18:00)
[2018-12-17] MEDS ORDERED: PATIENT'S OWN MEDICATION (NON-FORMULARY) (Gabapentin [Gabapentin] 600 MG) PO SCH (18:00)
--- NOTE | 2018-12-17 18:44 | CONS ---
DATE OF CONSULTATION: 12/17/2018 This is a 58-year-old man on disability who lives at home with his . [place] [facility] [place] on [place], with his family for [employer]. He had no water exposure. They basically walked around for [email or web address]. He returned home that same day. On Wednesday, he developed a painful rash on his back , shoulders and face. It was not pruritic. He had no fever. On December 07, he went to the urgent care center at [facility] and was evaluated for his rash. They were concerned about possible Varicella. He was started on Valtrex 1 gram p.o. t.i.d. and he went home on isolation. [facility] was contacted and swabs were obtained. He had a Varicella PCR done which was negative and had an HIV test which was negative. The vesicles were apparently swabbed. He was contacted by Gem from the [facility] on Wednesday and his isolation was discontinued. He was contacted by Dr. Martino from [facility], who asked him to finish his seven-day course of Valtrex, which he did, and placed him on Bactrim for possible folliculitis. He started the Bactrim on Wednesday. On Wednesday, his rash had improved. He no longer had these lesions on his face but he continued to have the lesions on his chest and back. He started having persistent bitemporal headache and high-grade fevers with nausea. This continued from Wednesday until Wednesday. His fevers had been as high as 103 and 104 at home. He came to the emergency room last night. He has had no vomiting or diarrhea. He is very constipated. His confirms that the rash is improving. I spoke with Dr. Martino at [facility], who confirmed all of this. He reported that the patient's rash was mainly on his face, chest and back. He did have scattered lesions on his arms and legs. The patient has now completed one week of Valtrex and is taking Bactrim. His last dose was yesterday morning. PAST MEDICAL/SURGICAL HISTORY: Notable for a history of hypertension, spinal spondylosis, chronic back pain and severe arthritis, history of a hernia, hyperlipidemia. He has a ruptured disk in his neck. He has chronic knee, shoulder and back pain. He has had bilateral knee replacements; the right knee has been done three times and the left knee once. SOCIAL HISTORY: He lives with his family. No one is sick at home. He has had no other travel than the above. He lives in a house in [facility]. He is not aware of any tick bites. They do have a dog. REVIEW OF SYSTEMS: He has had fevers, chills and the bitemporal headache. He feels like he has a cold. He and his report that the rash is actually better and is no longer on his face. It has not spread anywhere although it is still quite red. He has had nausea and vomiting. He has had decreased urine output. He has had no appetite. He has had constipation and has not had a bowel movement in four days. PHYSICAL EXAMINATION: VITALS: T-max is 102; current temperature is 98.5. Pulse is 76, blood pressure 124/54, respiratory rate 18, weight 112 kg. HEENT: Normocephalic. Eyes are anicteric. NECK: Supple. LUNGS: Diminished breath sounds at the bases. HEART: Regular rate and rhythm. ABDOMEN: Soft, nontender. EXTREMITIES: No edema. SKIN: He has a maculopapular rash that extends throughout his entire back. It is on his anterior chest. He has a few excoriations on his hands. He has a few scattered lesions on his inner thighs. He states that none of this is new and that it is healing. LABS: His white count on admission was 4.3. This morning, it is 3.3. Hemoglobin of 12.3, platelets of 126. Differential is notable for 8.5% eosinophils. SED rate is 13. His INR is normal. On admission, his BUN was 28 and his creatinine was 2.2. He received some IV fluids. On repeat chemistries, BUN is 16 and creatinine is 1.3. His LFTs are normal. CRP is 3.2. His urinalysis is negative for blood as well as ketones. His toxicology is positive for opiates. His influenza screen and HIV tests are negative. He had a head CT done in the ER for his headaches. This showed no evidence of any intracranial lesions. He had a renal ultrasound that showed a renal cyst. He has a probable fatty liver. He had a chest CT done that showed a mildly enlarged spleen, diffuse hepatic steatosis, some interstitial thickening in the right middle lobe , possibly a very small infiltrate. He has a probable thyroid nodule. IN SUMMARY: This is a 58-year-old man with: 1. Persistent fever and severe headache for four days. I think it would be reasonable to do an LP to rule out viral meningitis. I doubt that he has HSV or Varicella as he has completed one week of Valtrex and he is not immunocompromised. His lesions are also not that consistent with Varicella. None of them appear vesicular or pustular; they are more maculopapular. 2. I would hold further acyclovir at this time given the elevated creatinine and negative workup by the [facility] and [facility]. 3. I would send the lumbar puncture for a cell count, glucose, protein, routine culture, viral encephalitis and routine viral panels with HIV and HSV. 4. Would repeat his HIV testing. 5. Will send a tick workup given his leukopenia and thrombocytopenia, all of which could just be viral. 6. Would consider a dermatology evaluation. 7. This could all be a BACTRIM ALLERGY with eosinophilia, fever and headache but most often, this is a diagnosis of exclusion and the Bactrim has been stopped. 8. Would continue aggressive IV fluids. 9. Will treat him with Rocephin, doxycycline and vancomycin. 10. Await lumbar puncture. 11. Would continue isolation. 12. Will check an RPR. 13. We sent a tick-borne panel. 14. I have reviewed the labs from the [facility] and have spoken to Dr. Martino there. I discussed all this with the patient and his at the bedside. I also discussed all of this with the hospitalist. LENGTH OF VISIT: Over one hour was spent in the care of this patient in obtaining history and calling his prior medical provider. VIRGINIA MALDONADO M.D. [id number] PRICILA
[2018-12-17] MEDS ORDERED: ACETAMINOPHEN 1000 MG/100 ML VIAL (NON FORMULARY) IVPB PRN (18:58)
[2018-12-17] MEDS: AMITRIPTYLINE HCL 10 MG TABLET (FP) PO SCH (21:41)
[2018-12-18] MEDS: ACYCLOVIR INJECTION 800 MG in DEXTROSE 5%-WATER - 250 ML IVPB SCH ×2 (01:02→09:39)
[2018-12-18] MEDS: VANCOMYCIN 1 GRAM (PRE-DOCKED) 1,000 MG/250 ML BAG IVPB SCH (05:15)
[2018-12-18] MEDS: CYCLOBENZAPRINE HCL 10 MG TABLET (FP) PO SCH ×3 (05:17→21:16)
--- NOTE | 2018-12-18 08:54 | PN ---
Teaching Attending Note Name of Resident: Loc Gregory ATTENDING PHYSICIAN STATEMENT I saw and evaluated the patient. I reviewed the resident's note and discussed the case with the resident. I agree with the resident's findings and plan as documented. SUBJECTIVE: Fevers, headache, light sensitivity resolved. Rash unchanged, no longer pruritic. No neck stiffness. No limb numbness/weakness. No seizures. OBJECTIVE: Afebrile, Hemodynamically Stable. Last Vital Signs Temp Pulse Resp BP Pulse Ox 97.6 F 86 18 125/76 96 12/18/18 08:03 12/18/18 08:03 12/18/18 08:03 12/18/18 08:03 12/17/18 21:00 HEENT - Atraumatic, Normocephalic. No nuchal rigidity. Heart - S1, S2, RRR Lungs - clear to auscultation Abdomen - Soft, non-tender. Bowel Sounds normal. Extremities - no edema, no calf tenderness. Skin - resolving vesicular rash over torso and UEs. Neuro - AAO x 3. Tone/Power normal all extremities. Laboratory Results - last 24 hr 12/17/18 12/17/18 12/18/18 13:33 Unknown 08:30 WBC 2.7 L RBC 4.05 Hgb 12.9 Hct 36.6 MCV 90.2 MCH 31.9 MCHC 35.3 RDW 14.8 Plt Count 143 MPV 8.1 Absolute Neuts (auto) 1.4 L Neutrophils % 54.1 D Lymphocytes % 20.0 D Monocytes % 13.2 H Eosinophils % 12.2 H Basophils % 0.5 Nucleated RBC % 0 Sodium Potassium Chloride Carbon Dioxide Anion Gap BUN Creatinine Est GFR (CKD-EPI)AfAm Est GFR (CKD-EPI)NonAf Random Glucose Calcium Total Bilirubin AST ALT Alkaline Phosphatase Total Protein Albumin Fld Lyme IgM [place] Viscera Washer CSF Appearance CSF Color CSF WBC CSF RBC CSF Neutrophils CSF Lymphocytes CSF Eosinophils CSF Basophils CSF Macrophages CSF Plasma Cells CSF Diff Comment CSF Comment CSF Glucose CSF Total Protein RPR Titer Nonreactive Lyme Antibody Value Viscera Washer Lyme IgG 18 kDa Band Viscera Washer Lyme IgG 23 kDa Band Viscera Washer Lyme IgG 28 kDa Band Viscera Washer Lyme IgG 30 kDa Band Viscera Washer Lyme IgG 39 kDa Band Viscera Washer Lyme IgG 41 kDa Band Viscera Washer Lyme IgG 45 kDa Band Viscera Washer Lyme IgG 58 kDa Band Viscera Washer Lyme IgG 66 kDa Band Viscera Washer Lyme IgG 93 kDa Band Viscera Washer Lyme IgG W Blot Interp Viscera Washer Lyme Ab Interpretation Viscera Washer 12/18/18 12/18/18 08:30 13:00 WBC RBC Hgb Hct MCV MCH MCHC RDW Plt Count MPV Absolute Neuts (auto) Neutrophils % Lymphocytes % Monocytes % Eosinophils % Basophils % Nucleated RBC % Sodium 142 Potassium 4.4 Chloride 107 Carbon Dioxide 30 Anion Gap 5 L BUN 8.7 Creatinine 1.2 Est GFR (CKD-EPI)AfAm 76.79 Est GFR (CKD-EPI)NonAf 66.26 Random Glucose 85 Calcium 8.4 L Total Bilirubin 0.3 AST 20 ALT 26 Alkaline Phosphatase 72 Total Protein 6.2 L Albumin 3.3 L Fld Lyme IgM [place] CSF Appearance Clear CSF Color Colorless CSF WBC 0 CSF RBC 2 CSF Neutrophils No Result Required. CSF Lymphocytes No Result Required. CSF Eosinophils No Result Required. CSF Basophils No Result Required. CSF Macrophages No Result Required. CSF Plasma Cells No Result Required. CSF Diff Comment No Result Required. CSF Comment No Result Required. CSF Glucose 56 CSF Total Protein 43 RPR Titer Lyme Antibody Value Lyme IgG 18 kDa Band Lyme IgG 23 kDa Band Lyme IgG 28 kDa Band Lyme IgG 30 kDa Band Lyme IgG 39 kDa Band Lyme IgG 41 kDa Band Lyme IgG 45 kDa Band Lyme IgG 58 kDa Band Lyme IgG 66 kDa Band Lyme IgG 93 kDa Band Lyme IgG W Blot Interp Lyme Ab Interpretation Current Medications Generic Name Dose Route Start Last Admin Trade Name Freq PRN Reason Stop Dose Admin Amitriptyline HCl 20 mg 12/17/18 22:00 12/17/18 21:41 Elavil - PO 20 mg HS SIMONE Administration Cyclobenzaprine HCl 10 mg 12/17/18 15:30 12/18/18 05:17 Flexeril - PO 10 mg TID SIMONE Administration Gabapentin 600 mg 12/17/18 18:00 12/17/18 21:28 Neurontin - PO 600 mg QID SIMONE Administration Sodium Chloride 1,000 mls @ 150 mls/hr 12/17/18 02:30 12/17/18 20:37 Normal Saline - IV 150 mls/hr ASDIR SIMONE Administration Ceftriaxone Sodium 2 gm/ 100 mls @ 200 mls/hr 12/17/18 13:15 12/17/18 21:26 Dextrose IVPB 200 mls/hr BID SIMONE Administration Protocol Doxycycline Hyclate 100 mg/ 100 mls @ 100 mls/hr 12/17/18 12:45 12/17/18 21: 29 Dextrose IVPB 100 mls/hr BID SIMONE Administration Vancomycin HCl 1,000 mg in 250 mls @ 166.667 mls/hr 12/17/18 16:30 12/18/18 05:15 Vancomycin (Pre-Docked) IVPB 166.667 mls/hr Q12H SIMONE Administration Protocol Acyclovir 800 mg/ Dextrose 266 mls @ 266 mls/hr 12/17/18 18:15 12/18/18 01: 02 EST IVPB 266 mls/hr Q8H-IV SIMONE Administration Ondansetron HCl 4 mg 12/17/18 09:44 12/17/18 19:50 Zofran Injection IVPUSH 4 mg Q6H PRN Administration NAUSEA Home Medications Medication Instructions Recorded Amitriptyline HCl [Elavil -] 20 mg PO HS 12/16/18 Atorvastatin Calcium [Lipitor] 10 mg PO HS 12/16/18 Celecoxib [Celebrex] 200 mg PO BID 12/16/18 Cyclobenzaprine HCl 10 mg PO TID 12/16/18 Gabapentin 600 mg PO QID 12/16/18 HYDROmorphone [Dilaudid -] 2 mg PO BID PRN 12/16/18 Lisinopril 10 mg PO DAILY 12/16/18 Sulfamethoxazole/Trimethoprim 1 tab PO BID 12/16/18 [Bactrim Ds -] Valacyclovir HCl [Valtrex -] 1 tab PO TID 12/16/18 ASSESSMENT/PLAN: 58 year old male with history of Migraine (sees Dr. Vides), HTN, HLD, BPH, OA , presented with fever on background Hx of 10 days of vesicular rash, for which he was treated initially with Valtrex for 7 days, followed by Bactrim, with development of what appears to be cyclical fevers for the past [address] Chest - possible RML infiltrates. 1 x 0.4 cm noncalcified pleural-based nodule along posterior border of right oblique fissure at the level of mid to lower chest. Mildly prominent subcarinal mediastinal lymph node is noted with a 1 cm short axis diameter. Large spleen, hepatic steatosis. Focal low- attenuation lesion within the right lower paratracheal region measuring at least 4.5 x 3 cm probably representing a large thyroid nodule. CT head - no acute intracranial findings. CXR - no consolidation 1. Rash, likely VZV. Fevers, resolved, possible adverse reaction to Bactrim. Completed 1 week Valtrex, subsequently placed on Bactrim prior to developing fever s/p LP (by Neurology) to exclude meningitis - fili count/biochem neg. Viral PCR pending. Initially lymphopenic, resolved, but now mildly leukopenic and eosinophilic - consistent with drug reaction possibly. Empirically covered with Acyclovir, Ampicillin, ceftriaxone, Vancomycin initially - Aciclovir discontinued and Abx now rationalized to Doxycycline by ID ID also ordered Tick borne illness work-up. RPR neg, HIV neg. Neurology following Currently Afebrile, Hemodynamically Stable. Airborne and contact isolation precautions as per ID If remains afebrile, with clinical improvement, possible discharge tomorrow. 2. CHE secondary to dehydration/sepsis Resolved with IV fluids. Renal US - Bilateral Renal cysts L > R. Follows with Dr. Martir Hutchinson - give Urology appt on discharge 3. Thyroid nodule on CT Chest - for Thyroid US - informed by radiology that this is not done as in-patient. For out-patient study and PCP follow up. 4. Pulmonary Nodules on CT Chest - for [address] follow up. 5. HTN - Normally on Lisinopril, now held due to CHE and borderline BP DVT Px - SCDs. Heparin SQ held due to recent LP.
[2018-12-18 09:14] LABS: BASO % 0.5 % (0-2.0); EOS % 12.2 % (0-4.5); HEMATOCRIT 36.6 % (35.4-49); HEMOGLOBIN 12.9 GM/dL (11.7-16.9); MCH 31.9 pg (25.7-33.7); MCHC 35.3 g/dl (32.0-35.9); MEAN CELL VOLUME 90.2 fl (80-96); MEAN PLT VOLUME 8.1 fl (7.5-11.1); MONO % 13.2 % (3.8-10.2); NEUT % 54.1 % (42.8-82.8); PLATELET COUNT 143 K/MM3 (134-434); RBC 4.05 M/mm3 (4.00-5.60); RDW 14.8 % (11.9-15.9); WHITE BLOOD COUNT 2.7 K/mm3 (4.0-10.0)
[2018-12-18] MEDS ORDERED: DEXTROSE 5%-WATER 100 ML IVPB ONE (09:30)
[2018-12-18] MEDS ORDERED: PT OWN MED DRAWER 7, Y5N ONE ×2 (09:30→20:52)
[2018-12-18] MEDS: CEFTRIAXONE 2 GM in DEXTROSE 5%-WATER 100 ML IVPB SCH (09:39)
[2018-12-18] MEDS: SODIUM CHLORIDE 1,000 ML IV SCH (09:39)
[2018-12-18] MEDS: DOXYCYCLINE INJECTION 100 MG in DEXTROSE 5%-WATER - 100 ML IVPB SCH ×2 (09:39→21:16)
[2018-12-18 09:50] LABS: ALBUMIN 3.3 g/dl (3.4-5.0); BILIRUBIN,TOTAL 0.3 mg/dL (0.2-1); BLOOD UREA NITROGEN 8.7 mg/dL (7-18); CALCIUM 8.4 mg/dL (8.5-10.1); CREATININE 1.2 mg/dL (0.55-1.3); POTASSIUM 4.4 mmol/L (3.5-5.1); TOT PROT 6.2 g/dl (6.4-8.2)
[2018-12-18] MEDS: GABAPENTIN 300 MG CAPSULE (FP) PO SCH ×4 (09:58→21:16)
--- NOTE | 2018-12-18 12:14 | PROC ---
Lumbar Puncture Indication: CSF for viral meningitis Risks and Benefits Explained: Yes Consent on Chart: Yes Sterile Technique: Yes Skin prep: Betadine Position: Left lateral decubitus Site: L3-L4 Local Anesthesia: 1% Lidocaine with epi Opening Pressure(mmHg): 240 mm CSF with normal respiratory excursion and neg [place]stedt Closing Pressure(mmHg): N/A CSF Color, Appearance: Clear Sterile Dressing Applied: Yes Remarks: The procedure was well tolerated by Ashlyn Danica jonny was instructed to rest in bed for four hours. Spinal fluid studies discussed with Dr. Samuels. Thank you very much.
[2018-12-18 13:24] LABS: CSF APPEARANCE CLEAR; CSF COLOR COLORLESS; CSF WBC 0
[2018-12-18 14:04] LABS: BF GLUCOSE (CSF ONLY) 56 mg/dL (40-70)
--- NOTE | 2018-12-18 14:07 | PN ---
Progress Note (short form) - Note Progress Note: fevers resolved headache resolved feels well s/p LP - 0 wbc, 2 rbc Vital Signs Period Temp Pulse Resp BP Sys/Ulloa Pulse Ox Last 24 Hr 97.6 F-98.4 F 86-87 18-20 125-147/76-87 96 cor-rrr lungs clear rash unchanged abd soft,nt ext no edema CBC, BMP 12/18/18 08:30 12/18/18 08:30 12% eos RPR NR hiv negative Microbiology 12/17/18 16:50 Urine For Antigen Detection Legionella Antigen - Final 12/17/18 16:50 Urine For Antigen Detection Streptococcus pneumoniae Antigen (M - Final 12/16/18 21:00 Urine - Urine Clean Catch Urine Culture - Final NO GROWTH OBTAINED 12/16/18 16:34 Blood - Peripheral Venous Blood Culture - Preliminary NO GROWTH OBTAINED AFTER 24 HOURS, INCUBATION TO CONTINUE FOR 4 DAYS. 12/16/18 16:34 Blood - Peripheral Venous Blood Culture - Preliminary NO GROWTH OBTAINED AFTER 24 HOURS, INCUBATION TO CONTINUE FOR 4 DAYS. a/p s/p LP no signs infection rash unchanged s/p 7 days valtrex d/c acyclovir d/c vancomycin rocephin/doxy to continue with plans to d/c home on po doxycycline for total 2 weeks-will treat folliculitis as well f/u tick serology, will treat for pneumonia as well as tick related illness can f/u in our office [phone] suspect this may all be bactrim allergy
--- NOTE | 2018-12-18 17:56 | PN ---
Physical Exam: SUBJECTIVE: Patient seen and examined NAEON Denies THORNTON, fever, photophobia. Endorses improvement in truncal rash. Thinks wounds are crusting. Endorses recent trip to [employer] but avoided water rides. Does not take baths, go to hot tubs OBJECTIVE: Vital Signs Period Temp Pulse Resp BP Sys/Ulloa Pulse Ox Last 24 Hr 97.6 F-98.4 F 82-87 18-20 125-147/65-87 96-96 GENERAL: The patient is awake, alert, and fully oriented, in no acute distress. HEAD: Normal with no signs of trauma. EYES: PERRL, extraocular movements intact, sclera anicteric, conjunctiva clear. No ptosis. ENT: Ears normal, nares patent, oropharynx clear without exudates, moist mucous membranes. NECK: Trachea midline, full range of motion, supple. LUNGS: Breath sounds equal, clear to auscultation bilaterally, no wheezes, no crackles, no accessory muscle use. Multiple blanching erythematous lesions with thin crusting. HEART: Regular rate and rhythm, S1, S2 without murmur, rub or gallop. ABDOMEN: Soft, nontender, nondistended, normoactive bowel sounds, no guarding, no rebound. EXTREMITIES: 2+ pulses, warm, well-perfused, no edema. NEUROLOGICAL: Normal speech, gait not observed. Neg Kernig's. Neg Brudinzki's. 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 Moving all limbs spontaneously PSYCH: Normal mood, normal affect. SKIN: Warm, dry, normal turgor, no rashes or lesions noted Laboratory Results - last 24 hr 12/17/18 12/17/18 12/18/18 13:33 Unknown 08:30 WBC 2.7 L RBC 4.05 Hgb 12.9 Hct 36.6 MCV 90.2 MCH 31.9 MCHC 35.3 RDW 14.8 Plt Count 143 MPV 8.1 Absolute Neuts (auto) 1.4 L Neutrophils % 54.1 D Lymphocytes % 20.0 D Monocytes % 13.2 H Eosinophils % 12.2 H Basophils % 0.5 Nucleated RBC % 0 Sodium Potassium Chloride Carbon Dioxide Anion Gap BUN Creatinine Est GFR (CKD-EPI)AfAm Est GFR (CKD-EPI)NonAf Random Glucose Calcium Total Bilirubin AST ALT Alkaline Phosphatase Total Protein Albumin Fld Lyme IgM [place] CSF Appearance CSF Color CSF WBC CSF RBC CSF Neutrophils CSF Lymphocytes CSF Eosinophils CSF Basophils CSF Macrophages CSF Plasma Cells CSF Diff Comment CSF Comment CSF Glucose CSF Total Protein RPR Titer Nonreactive Lyme Antibody Value [place] Lyme IgG 18 kDa Band [place] Lyme IgG 23 kDa Band [place] Lyme IgG 28 kDa Band [place] Lyme IgG 30 kDa Band [place] Lyme IgG 39 kDa Band [place] Lyme IgG 41 kDa Band [place] Lyme IgG 45 kDa Band [place] Lyme IgG 58 kDa Band [place] Lyme IgG 66 kDa Band [place] Lyme IgG 93 kDa Band [place] Lyme IgG W Blot Interp [place] Lyme Ab Interpretation Pa[place]r Odds 12/18/18 12/18/18 08:30 13:00 WBC RBC Hgb Hct MCV MCH MCHC RDW Plt Count MPV Absolute Neuts (auto) Neutrophils % Lymphocytes % Monocytes % Eosinophils % Basophils % Nucleated RBC % Sodium 142 Potassium 4.4 Chloride 107 Carbon Dioxide 30 Anion Gap 5 L BUN 8.7 Creatinine 1.2 Est GFR (CKD-EPI)AfAm 76.79 Est GFR (CKD-EPI)NonAf 66.26 Random Glucose 85 Calcium 8.4 L Total Bilirubin 0.3 AST 20 ALT 26 Alkaline Phosphatase 72 Total Protein 6.2 L Albumin 3.3 L Fld Lyme IgM [place] CSF Appearance Clear CSF Color Colorless CSF WBC 0 CSF RBC 2 CSF Neutrophils No Result Required. CSF Lymphocytes No Result Required. CSF Eosinophils No Result Required. CSF Basophils No Result Required. CSF Macrophages No Result Required. CSF Plasma Cells No Result Required. CSF Diff Comment No Result Required. CSF Comment No Result Required. CSF Glucose 56 CSF Total Protein 43 RPR Titer Lyme Antibody Value Lyme IgG 18 kDa Band Lyme IgG 23 kDa Band Lyme IgG 28 kDa Band Lyme IgG 30 kDa Band Lyme IgG 39 kDa Band Lyme IgG 41 kDa Band Lyme IgG 45 kDa Band Lyme IgG 58 kDa Band Lyme IgG 66 kDa Band Lyme IgG 93 kDa Band Lyme IgG W Blot Interp Lyme Ab Interpretation Active Medications Generic Name Dose Route Start Last Admin Trade Name Freq PRN Reason Stop Dose Admin Amitriptyline HCl 20 mg 12/17/18 22:00 12/17/18 21:41 Elavil - PO 20 mg HS SIMONE Administration Cyclobenzaprine HCl 10 mg 12/17/18 15:30 12/18/18 15:11 Flexeril - PO 10 mg TID SIMONE Administration Gabapentin 600 mg 12/17/18 18:00 12/18/18 15:11 Neurontin - PO 600 mg QID SIMONE Administration Sodium Chloride 1,000 mls @ 150 mls/hr 12/17/18 02:30 12/18/18 09:39 Normal Saline - IV 150 mls/hr ASDIR SIMONE Administration Doxycycline Hyclate 100 mg/ 100 mls @ 100 mls/hr 12/17/18 12:45 12/18/18 09: 39 Dextrose IVPB 100 mls/hr BID SIMONE Administration Ceftriaxone Sodium 2 gm/ 50 mls @ 100 mls/hr 12/19/18 10:00 Dextrose IVPB DAILY SIMONE Protocol Ondansetron HCl 4 mg 12/17/18 09:44 12/17/18 19:50 Zofran Injection IVPUSH 4 mg Q6H PRN Administration NAUSEA ASSESSMENT/PLAN: 58 year old male with PMH of HTN, spinal sponylosis, hernia, and HLD who presents with 4 days of intermittent fevers and diffuse truncal rash. #Sepsis -- possibly meningitis, now less likley; possibly drug fever --resolving > UA: neg > CXR: neg > CT H: neg > CT chest: possible RML infiltrate. 1 x 0.4 cm noncalcified pleural-based nodule along posterior border of right oblique fissure at the level of mid to lower chest. Mildly prominent subcarinal mediastinal lymph node is noted with a 1 cm short axis diameter. Large spleen, hepatic steatosis. Focal low- attenuation lesion within the right lower paratracheal region measuring at least 4.5 x 3 cm probably representing a large thyroid nodule. > UA(12/16/18): NGTD > UCX(12/16/18): NGTD > CRP 3.2(high), ESR 13(norm) > RPR neg > HIV neg - acyclovir 1gm, ampicillin 2gm, ceftriaxone 1gm, and zosyn 3.75mg Q8H empirically --dc'd - antimicrobials: ceftriaxone + doxycycline --day #3 - Neuro(Peewee) consulted --possible viral synd w/ aseptic meningitis, varicella; consider vasculitis/MCVD --check JORDIN, RF --LP --completed 12/18/18 - ID(Chirag) consulted --suspects bactrim allergy -- LP w/o signs of infection --viral PCR pending -- unlikey viral -- completed valtrex 7d --dc acyclovir -- cw ceftriaxone + doxycycline then transition to doxycycline x2wk upon D/C --treats PNA and "folliculitis -- Airborne precautions -- fu tick serology #CHE likely 2/2 sepsis and vol depletion --resolving > US renal(12/17/18): Right simple cyst(1.7x1.1cm), Left exophytic cyst(8.0x7.2cm ); no hydronephrosis, no renal stones > Cr: 2.2, 1.3, 1.4--> 1.2 - mIVF: NS 150ml/hr - trend Cr - outpt Uro(Dr Wicho Hutchinson) #Incidental CT findings > Large thyroid nodule: > TSH: 0.78 -- outpt US of thyroid([facility] doesn't do it inpt) > Noncalcified pulm nodules -- outpt pulm f/u #HTN --currently normotensive - holding home lisinopril for now #HLD - Cont lipitor 10mg HS #DVT ppx - Heparin SQ TID #FEN - Sodium controlled diet - IV NS @ 150ml/hr #Dispo - Monitor on med-surg Visit type - Emergency Visit Emergency Visit: No - New Patient This patient is new to me today: No - Critical Care Critical Care patient: No ATTENDING PHYSICIAN STATEMENT I saw and evaluated the patient. I reviewed the resident's note and discussed the case with the resident. I agree with the resident's findings and plan as documented. SUBJECTIVE: OBJECTIVE: ASSESSMENT AND PLAN:
[2018-12-18] MEDS: AMITRIPTYLINE HCL 10 MG TABLET (FP) PO SCH (21:16)
[2018-12-18] MEDS ORDERED: ATORVASTATIN CA 10 MG TABLET (FP) PO SCH (22:00)
[2018-12-19] MEDS: SODIUM CHLORIDE 1,000 ML IV SCH (05:49)
[2018-12-19] MEDS: CYCLOBENZAPRINE HCL 10 MG TABLET (FP) PO SCH (05:49)
[2018-12-19 07:37] LABS: HEMATOCRIT 37.3 % (35.4-49); HEMOGLOBIN 12.5 GM/dL (11.7-16.9); MCH 30.2 pg (25.7-33.7); MCHC 33.5 g/dl (32.0-35.9); MEAN CELL VOLUME 90.3 fl (80-96); MEAN PLT VOLUME 7.9 fl (7.5-11.1); PLATELET COUNT 158 K/MM3 (134-434); RBC 4.13 M/mm3 (4.00-5.60); RDW 14.8 % (11.9-15.9); WHITE BLOOD COUNT 2.7 K/mm3 (4.0-10.0)
[2018-12-19 08:06] LABS: BLOOD UREA NITROGEN 10.1 mg/dL (7-18); CREATININE 0.8 mg/dL (0.55-1.3); MAGNESIUM 1.6 mg/dL (1.8-2.4); POTASSIUM 4.5 mmol/L (3.5-5.1)
[2018-12-19] MEDS ORDERED: MAGNESIUM SULF 50% (8.12 MEQ/2 ML-1 GM VIAL) IVPB ONE (09:00)
--- NOTE | 2018-12-19 09:00 | PN ---
Teaching Attending Note Name of Resident: Vanita Parker ATTENDING PHYSICIAN STATEMENT I saw and evaluated the patient. I reviewed the resident's note and discussed the case with the resident. I agree with the resident's findings and plan as documented. SUBJECTIVE:Feels improved no fever, head ache rash is improving OBJECTIVE: Vital Signs Temperature 98.7 F 12/19/18 07:45 Pulse Rate 85 12/19/18 07:45 Respiratory Rate 20 12/19/18 07:45 Blood Pressure 150/94 12/19/18 07:45 O2 Sat by Pulse Oximetry (%) 99 12/18/18 21:00 Young man not in distress HEENT: Mm moist,m no anemia, PERRLA EOMI NECK; No JVd No Bruit CHEST: CTA B/L CVS: S1S2 R no m/g/r ABD: No distention, non tender Bs + EXT: No edema feet YOUTH DEVELOPMENT PROFESSIONAL: AOX# non foacl DERM; maculpappular rash no new lesions CBC, BMP 12/19/18 06:15 12/19/18 06:15 Active Medications Amitriptyline HCl (Elavil -) 20 mg PO HS SIMONE Last Admin: 12/18/18 21:16 Dose: 20 mg Atorvastatin Calcium (Lipitor -) 10 mg PO HS SIMONE Last Admin: 12/18/18 21:16 Dose: 10 mg Cyclobenzaprine HCl (Flexeril -) 10 mg PO TID [facility] Last Admin: 12/19/18 05:49 Dose: 10 mg Gabapentin (Neurontin -) 600 mg PO QID SIMONE Last Admin: 12/18/18 21:16 Dose: 600 mg Doxycycline Hyclate 100 mg/ (Dextrose) 100 mls @ 100 mls/hr IVPB BID SIMONE Last Admin: 12/18/18 21:16 Dose: 100 mls/hr Ceftriaxone Sodium 2 gm/ (Dextrose) 50 mls @ 100 mls/hr IVPB DAILY [facility]; Protocol Magnesium Sulfate (Magnesium Sulfate) 2 gm IVPB ONCE ONE Stop: 12/19/18 09:01 Ondansetron HCl (Zofran Injection) 4 mg IVPUSH Q6H PRN PRN Reason: NAUSEA Last Admin: 12/17/18 19:50 Dose: 4 mg ASSESSMENT AND PLAN:8 year old male with history of Migraine (sees Dr. Vides) , HTN, HLD, BPH, OA, presented with fever on background Hx of 10 days of vesicular rash, for which he was treated initially with Valtrex for 7 days, followed by Bactrim, with development of what appears to be cyclical fevers for the past 4 days. Patient underwent extensive w/u including LP so far no definitive diagnosis ID recommonded Po Doxyxycline and F/U as out patient Plan; Dc Home as ID recommendation Warned fpt possible Bactrim induced Rash
[2018-12-19] MEDS ORDERED: CEFTRIAXONE 2 GM in DEXTROSE 5%-WATER - 50 ML IVPB SCH (10:00)
[2018-12-19] MEDS ORDERED: DEXTROSE 5%-WATER - 50 ML IVPB ONE (10:26)
--- NOTE | 2018-12-19 10:32 | PN ---
Progress Note (short form) - Note Progress Note: fevers resolved headache resolved feels well s/p LP - 0 wbc, 2 rbc gram stain negative no nausea, eating well Vital Signs Period Temp Pulse Resp BP Sys/Ulloa Pulse Ox Last 24 Hr 98.2 F-98.7 F 82-86 18-20 127-150/65-94 99 cor-rrr lungs clear abd soft,nt ext no edema rash unchanged a/p fevers and headache resolved s/p LP no signs infection rash unchanged s/p 7 days valtrex-w/u for varicella as outpt negative can switch to po doxycycline 100 mg po bid for 2 weeks this will treat for tick related illness as well as possible folliculitis can f/u in our office [phone] suspect this may all be bactrim allergy suggest derm evaluation as outpt as well
[2018-12-19] MEDS: GABAPENTIN 300 MG CAPSULE (FP) PO SCH (10:36)
[2018-12-19] MEDS: DOXYCYCLINE INJECTION 100 MG in DEXTROSE 5%-WATER - 100 ML IVPB SCH (10:37)
--- NOTE | 2018-12-19 10:59 | EKG ---
Test Reason : Blood Pressure : / mmHG Vent. Rate : 091 BPM Atrial Rate : 091 BPM P-R Int : 182 ms QRS Dur : 066 ms QT Int : 328 ms P-R-T Axes : 044 007 032 degrees QTc Int : 403 ms NORMAL SINUS RHYTHM POSSIBLE ANTERIOR INFARCT , AGE UNDETERMINED ABNORMAL ECG WHEN COMPARED WITH ECG OF 26-JUL-2018 13:04, NO SIGNIFICANT CHANGE WAS FOUND Confirmed by PRABHA AVERY MD ([id number]) on 12/19/2018 10:58:53 AM Referred By: Confirmed By:PRABHA AVERY MD
[2018-12-19 12:25] VITALS: BP 146/90; PULSE 79; TEMP 98.6
--- NOTE | 2018-12-19 12:27 | DS ---
Physical Exam: SUBJECTIVE: Patient seen and examined. No acute events overnight. OBJECTIVE: Vital Signs Period Temp Pulse Resp BP Sys/Ulloa Pulse Ox Last 24 Hr 98.2 F-98.7 F 82-86 18-20 127-150/65-94 99 PHYSICAL EXAM GENERAL: The patient is awake, alert, and fully oriented, in no acute distress. HEAD: Normal with no signs of trauma. EYES: PERRL, extraocular movements intact, sclera anicteric, conjunctiva clear. No ptosis. ENT: Ears normal, nares patent, oropharynx clear without exudates, moist mucous membranes. NECK: Trachea midline, full range of motion, supple. LUNGS: Breath sounds equal, clear to auscultation bilaterally, no wheezes, no crackles, no accessory muscle use. Multiple blanching erythematous lesions with thin crusting. HEART: Regular rate and rhythm, S1, S2 without murmur, rub or gallop. ABDOMEN: Soft, nontender, nondistended, normoactive bowel sounds, no guarding, no rebound. EXTREMITIES: 2+ pulses, warm, well-perfused, no edema. NEUROLOGICAL: Normal speech, gait not observed. Neg Kernig's. Neg Brudinzki's. 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 Moving all limbs spontaneously PSYCH: Normal mood, normal affect. SKIN: Warm, dry, normal turgor, no rashes or lesions noted LABS Laboratory Results - last 24 hr CBC, BMP 12/19/18 06:15 12/19/18 06:15 HOSPITAL COURSE: Date of Admission:12/16/18 58 year old male with PMH of HTN, spinal sponylosis, hernia, and HLD who presented with 4 days of intermittent fevers and diffuse truncal rash that developed 2 weeks ago. Pt went to urgent care and was prescribed 7 days of valtrex which did not improve the rash. He was then prescribed Bactrim and began developing intermittent fevers, chills, vomiting, and headaches which is why he came to the ED. On admission, patient was septic with fever, tachycardia , and lactate of 2.1. UA, Ucx, CXR, CT head, HIV, and RPR were all negative. CT chest showed possible RML infilitrate. Pt was empirically treated with acyclovir , ampicillin, ceftriaxone, and zosyn for suspected meningitis. LP was performed and was negative. Pt was then switched to doxycycline to treat probably pna and folliculitis. JORDIN, RF, viral PCR of LP, and tick serology are all pending ( which patient will follow up with ID for results). Pt is no longer experiencing fevers, chills, vomiting, or headaches since discontinuing Bactrim. It is suspected that his fevers were due to a sulfa allergy and he is advised to avoid sulfa drugs in the future. It is suspected that his rash is viral in nature. He will be discharged to 2 weeks of doxycyline for treatment. Pt had several incidental findings in his imaging: large thyroid nodule, non-calcified pulmonary nodules, and a simple cyst in R kidney. He will be provided with referrals for endo, pulm, and urology to further evaluate these findings. Pt is now clinically stable to be discharged home. LP: no signs of infection, viral PCR pending to f/u as outpatient CT Head: no acute pathology CT chest: possible RML infiltrate. 1 x 0.4 cm noncalcified pleural-based nodule along posterior border of right oblique fissure at the level of mid to lower chest. Mildly prominent subcarinal mediastinal lymph node is noted with a 1 cm short axis diameter. Large spleen, hepatic steatosis. Focal low-attenuation lesion within the right lower paratracheal region measuring at least 4.5 x 3 cm probably representing a large thyroid nodule. US Ana;: R simple cyst (1.7x1.1cm) Date of Discharge: 12/19/18 Minutes to complete discharge: 35 Discharge Summary Problems reviewed: Yes Reason For Visit: ACUTE KIDNEY INJURY/UTI/SEPSIS Current Active Problems CHE (acute kidney injury) (Acute) Fever (Acute) Folliculitis (Acute) Headache (Acute) Rash and nonspecific skin eruption (Acute) Sepsis (Acute) Condition: Stable - Instructions Diet, Activity, Other Instructions: You were admitted to the hospital for fevers and a rash. We ran multiple blood tests and imaging, as well as a lumbar puncture, and did not find any evidence of a possible infection. It is suspected that your fever is due to an allergy from Bactrim (a sulfa antibiotic that you took). You should avoid this antibiotic and other sulfa drugs in the future. We treated you with a different antibiotic that you should continue to take at home for your rash (instructions below). There were several incidental findings in the imaging of your lungs, thyroid, and kidneys. You should follow up with specialists to further evaluate these findings. We provided you with referrals (instructions below). Medications: - Take Doxycycline 100mg twice a day for 12 days to treat your rash. - Resume all other home medications as prescribed. Follow up: - Please follow up with Dr. Beard, infectious disease in 2 weeks to assess your rash. - There is a small cyst in your right kidney. Please see Dr. Hutchinson, urology, in 1-2 weeks for further evaluation. - There is a nodule in your thyroid. Please see Dr. Adams, endocrinology, in 1-2 weeks to receive an ultrasound of your thyroid. - There are several nodules in your lungs. Please see Dr. Perry, pulmonology, in 1-2 weeks for further evaluation. - Please follow up with your primary care provided in one week. Return to the emergency department if you experience fevers, chills, worsening rash, vomiting, diarrhea, or any other symptoms. Referrals: Adair Perry MD [Staff Physician] - Lissa Beard MD [Staff Physician] - 1 Week (hospital discharge follow up) Jason Hutchinson MD [Staff Physician] - Elbert Adams MD [Staff Physician] - Citlalli Yu MD [Primary Care Provider] - Disposition: HOME - Home Medications Comprehensive Discharge Medication List: Ambulatory Orders Amitriptyline HCl [Elavil -] 20 mg PO HS 12/16/18 Atorvastatin Calcium [Lipitor] 10 mg PO HS 12/16/18 Celecoxib [Celebrex] 200 mg PO BID 12/16/18 Cyclobenzaprine HCl 10 mg PO TID 12/16/18 Gabapentin 600 mg PO QID 12/16/18 Lisinopril 10 mg PO BID 12/16/18 Doxycycline Monohydrate [Mondoxyne Nl] 100 mg PO BID #24 capsule 12/19/18 This patient is new to me today: No Emergency Visit: No Critical Care patient: No - Discharge Referral Referred to [facility] No ATTENDING PHYSICIAN STATEMENT I saw and evaluated the patient. I reviewed the resident's note and discussed the case with the resident. I agree with the resident's findings and plan as documented. SUBJECTIVE: OBJECTIVE: ASSESSMENT AND PLAN:
[2018-12-21 10:06] LABS: MUMPS AB IGG CSF < 5.0 AU/mL (<=10.9)
== END 2018-12-19 14:46 | disposition home or self-care (01) | DRG 872 ==
LOC: JER 15:59 → JERBED 18:27 → J7W 23:16 → J8W 12-17 05:39
PROVIDERS: ADMIT Internal Medicine; ATTEND Internal Medicine
PROC: 009U3ZX Drainage of Spinal Canal, Percutaneous Approach, Diagnostic (ICD-10-PCS; principal; 2018-12-18)
DX: A41.9 Sepsis, unspecified organism (principal); N17.9 Acute kidney failure, unspecified; E86.9 Volume depletion, unspecified; I10 Essential (primary) hypertension; E78.5 Hyperlipidemia, unspecified; R50.9 Fever, unspecified; L73.9 Follicular disorder, unspecified; R51 Headache; R21 Rash and other nonspecific skin eruption; E86.0 Dehydration; R91.8 Other nonspecific abnormal finding of lung field; E04.1 Nontoxic single thyroid nodule; R00.0 Tachycardia, unspecified
CPT/HCPCS: 36415; 70450-TC; 71046-TC-FY; 71250-TC; 76775-TC; 80048; 80053; 80307; 81003; 82550; 82930; 82945; 83036; 83605; 83735; 84100; 84157; 84443; 84484; 85025; 85027; 85610; 85651; 86140; 86593; 86617; 86618; 86694; 86735; 86765; 86787; 86788; 86789; 87040; 87070; 87086; 87205; 87389; 87633; 87798; 87804; 87899; 93005; 93010; 99283-25; G0480; J0131; J1644; J7030

== ENCOUNTER 2020-03-23 08:24 | Inpatient (IN) | payer BC ==
[2020-03-23 09:28] LABS: BASO % 0.3 % (0-2.0); EOS % 0.1 % (0-4.5); HEMATOCRIT 41.5 % (35.4-49); HEMOGLOBIN 14.5 GM/dL (11.7-16.9); LYMPH % 12.7 % (8-40); MCHC 34.9 g/dl (32.0-35.9); MEAN CELL VOLUME 88.8 fl (80-96); MEAN PLT VOLUME 8.5 fl (7.5-11.1); MONO % 9.8 % (3.8-10.2); NEUT % 77.1 % (42.8-82.8); PLATELET COUNT 103 K/MM3 (134-434); RBC 4.67 M/mm3 (4.00-5.60); RDW 14.2 % (11.9-15.9); WHITE BLOOD COUNT 2.9 K/mm3 (4.0-10.0)
[2020-03-23 09:31] LABS: INR 1.03 (0.83-1.09); PROTHROMBIN TIME (PATIENT) 12.4 SEC (9.7-13.0)
[2020-03-23 09:34] LABS: ACTIVATED PTT 32.7 SECONDS (25.2-36.5)
[2020-03-23 09:49] LABS: CHLORIDE 98 mmol/L (98-107); POTASSIUM 3.8 mmol/L (3.5-5.1); SODIUM 131 mmol/L (136-145)
[2020-03-23 09:51] LABS: CALCIUM 8.1 mg/dL (8.5-10.1)
[2020-03-23 09:52] LABS: ALBUMIN 3.6 g/dl (3.4-5.0); ANION GAP 8 MMOL/L (8-16); BLOOD UREA NITROGEN 25.5 mg/dL (7-18); CO2 25 mmol/L (21-32); GLUCOSE,RANDOM 94 mg/dL (74-106)
[2020-03-23 09:54] LABS: SGPT/ALT 65 U/L (13-61)
[2020-03-23 09:55] LABS: BILIRUBIN,DIRECT 0.3 mg/dL (0.0-0.2); CREATININE 1.3 mg/dL (0.55-1.3); SGOT/AST 66 U/L (15-37)
[2020-03-23 09:56] LABS: BILIRUBIN,TOTAL 0.8 mg/dL (0.2-1); TOT PROT 6.6 g/dl (6.4-8.2)
[2020-03-23 09:57] LABS: ALK PHOS 82 U/L (45-117)
[2020-03-23 10:01] LABS: LDH 270 U/L (87-246)
[2020-03-23] MEDS ORDERED: dilTIAZem HCL 60 MG TABLET PO ONE (10:35)
[2020-03-23] MEDS ORDERED: IBUPROFEN 600 MG TABLET (FP) PO ONE ×2 (10:45→11:18)
[2020-03-23] MEDS ORDERED: AZITHROMYCIN 250 MG TABLET PO ONE (20:00)
[2020-03-23] MEDS ORDERED: CEFTRIAXONE 1 GM in DEXTROSE 5%-WATER - 50 ML IVPB SCH ×2 (20:15→23:52)
[2020-03-23] MEDS ORDERED: LISINOPRIL 10 MG TABLET PO SCH (22:00)
[2020-03-23] MEDS: CHOLECALCIFEROL (VIT D3) 1,000 UNIT (25 MCG) TABLET PO SCH (23:48)
[2020-03-23] MEDS: DEXAMETHASONE SOD PHOSPHATE 4 MG/1 ML VIAL IVPUSH SCH (23:53)
[2020-03-23] MEDS ORDERED: cefTRIAXone SODIUM 1 GM VIAL ONE (23:54)
[2020-03-23] MEDS ORDERED: DEXTROSE 5%-WATER - 50 ML IVPB ONE (23:55)
[2020-03-24] MEDS: GABAPENTIN 300 MG CAPSULE PO SCH ×4 (00:04→14:51)
[2020-03-24] MEDS: ATORVASTATIN CA 10 MG TABLET (FP) PO SCH ×2 (00:04→21:26)
[2020-03-24] MEDS: ACETAMINOPHEN 500 MG TABLET (FP) PO PRN ×2 (00:05→17:40)
[2020-03-24] MEDS: ASCORBIC ACID 500 MG TABLET (FP) PO SCH ×2 (00:05→09:44)
[2020-03-24] MEDS: INSULIN SLIDING SCALE (NOVOLOG) 1 VIAL SQ SCH ×5 (00:18→21:59)
[2020-03-24] MEDS: AMITRIPTYLINE HCL 10 MG TABLET PO SCH ×2 (00:30→21:25)
[2020-03-24] MEDS ORDERED: DEXTROSE 5%-WATER - 50 ML IVPB ONE (09:40)
[2020-03-24] MEDS ORDERED: cefTRIAXone SODIUM 1 GM VIAL ONE (09:40)
[2020-03-24] MEDS: ENOXAPARIN NA (PORCINE) 40 MG/0.4 ML DISP.SYRIN SQ SCH (09:44)
[2020-03-24] MEDS: DEXAMETHASONE SOD PHOSPHATE 4 MG/1 ML VIAL IVPUSH SCH (09:44)
[2020-03-24] MEDS: CHOLECALCIFEROL (VIT D3) 1,000 UNIT (25 MCG) TABLET PO SCH (09:45)
[2020-03-24] MEDS: PANTOPRAZOLE SODIUM 40 MG VIAL IVPUSH SCH (09:45)
[2020-03-24] MEDS ORDERED: AZITHROMYCIN 250 MG TABLET PO SCH (10:00)
[2020-03-24] MEDS ORDERED: FLU VACCINE (FLULAVAL) PF 60 MCG/0.5 ML SYRINGE 2020-2021 IM ONE (10:00)
[2020-03-24] MEDS ORDERED: ZINC SULFATE 220 MG TABLET PO SCH (10:00)
[2020-03-24] MEDS ORDERED: PNEUMOCOCCAL 23 VACCINE 0.5 ML VIAL IM ONE (10:00)
[2020-03-24] MEDS ORDERED: PNEUMOC 13-VAL CONJ-DIP CRM/PF 0.5 ML DISP.SYRIN IM ONE (10:00)
[2020-03-24] MEDS ORDERED: POLYETHYLENE GLYCOL 3350 119 GM BTL PO PRN (10:47)
[2020-03-24 15:28] LABS: BASO % 0.2 % (0-2.0); HEMATOCRIT 42.6 % (35.4-49); HEMOGLOBIN 14.7 GM/dL (11.7-16.9); LYMPH % 10.7 % (8-40); MCH 30.7 pg (25.7-33.7); MCHC 34.4 g/dl (32.0-35.9); MEAN CELL VOLUME 89.1 fl (80-96); MEAN PLT VOLUME 8.9 fl (7.5-11.1); NEUT % 85.1 % (42.8-82.8); PLATELET COUNT 104 K/MM3 (134-434); RBC 4.78 M/mm3 (4.00-5.60); RDW 14.3 % (11.9-15.9)
[2020-03-24 15:28] LABS: POTASSIUM 5.3 mmol/L (3.5-5.1)
[2020-03-24 15:30] LABS: ALBUMIN 3.5 g/dl (3.4-5.0); BLOOD UREA NITROGEN 22.1 mg/dL (7-18); CALCIUM 8.5 mg/dL (8.5-10.1); MAGNESIUM 2.1 mg/dL (1.8-2.4)
[2020-03-24 15:34] LABS: PHOSPHOROUS 2.7 mg/dL (2.5-4.9)
[2020-03-24 15:35] LABS: BILIRUBIN,TOTAL 0.4 mg/dL (0.2-1); INR 0.99 (0.83-1.09); TOT PROT 6.6 g/dl (6.4-8.2)
[2020-03-24 15:37] LABS: ACTIVATED PTT 32.9 SECONDS (25.2-36.5)
[2020-03-24 15:48] LABS: WHITE BLOOD COUNT 1.6 K/mm3 (4.0-10.0)
[2020-03-24] MEDS ORDERED: REMDESIVIR 200 MG in SODIUM CHLORIDE 210 ML IVPB ONE (16:00)
[2020-03-24 16:48] LABS: ANISOCYTOSIS 0; MACROCYTOSIS 0; PLATELET ESTIMATE DECREASED
[2020-03-24] MEDS ORDERED: GABAPENTIN 300 MG CAPSULE ONE (20:30)
[2020-03-24] MEDS ORDERED: GABAPENTIN 100 MG CAPSULE ONE (20:30)
[2020-03-24] MEDS ORDERED: PT OWN MED DRAWER 7, Y5N ONE (21:24)
[2020-03-24] MEDS: GABAPENTIN PO SCH (21:26)
[2020-03-24] MEDS: guaiFENesin/D-METHORPHAN HB 10 ML UNIT-DOSE CUPS PO PRN (21:40)
[2020-03-24] MEDS: CYCLOBENZAPRINE HCL 10 MG TABLET (FP) PO PRN (21:40)
[2020-03-24] MEDS ORDERED: GABAPENTIN 300 MG CAPSULE PO SCH (22:00)
[2020-03-25] MEDS: INSULIN SLIDING SCALE (NOVOLOG) 1 VIAL SQ SCH ×4 (06:51→21:52)
[2020-03-25 08:42] LABS: BASO % 0.1 % (0-2.0); HEMATOCRIT 41.3 % (35.4-49); HEMOGLOBIN 14.1 GM/dL (11.7-16.9); LYMPH % 5.1 % (8-40); MCH 30.3 pg (25.7-33.7); MCHC 34.1 g/dl (32.0-35.9); MEAN CELL VOLUME 88.9 fl (80-96); MEAN PLT VOLUME 9.1 fl (7.5-11.1); MONO % 6.6 % (3.8-10.2); NEUT % 88.2 % (42.8-82.8); PLATELET COUNT 104 K/MM3 (134-434); RBC 4.65 M/mm3 (4.00-5.60); RDW 14.1 % (11.9-15.9)
[2020-03-25] MEDS ORDERED: GABAPENTIN 100 MG CAPSULE ONE ×2 (08:43→21:53)
[2020-03-25] MEDS ORDERED: GABAPENTIN 300 MG CAPSULE ONE ×2 (08:43→21:53)
[2020-03-25 08:49] LABS: POTASSIUM 4.2 mmol/L (3.5-5.1)
[2020-03-25 09:08] LABS: ALBUMIN 3.4 g/dl (3.4-5.0); BLOOD UREA NITROGEN 21.6 mg/dL (7-18); CALCIUM 8.1 mg/dL (8.5-10.1); MAGNESIUM 1.9 mg/dL (1.8-2.4)
[2020-03-25 09:11] LABS: CREATININE 0.9 mg/dL (0.55-1.3); PHOSPHOROUS 2.9 mg/dL (2.5-4.9)
[2020-03-25 09:13] LABS: BILIRUBIN,TOTAL 0.5 mg/dL (0.2-1); TOT PROT 6.3 g/dl (6.4-8.2)
[2020-03-25] MEDS: CHOLECALCIFEROL (VIT D3) 1,000 UNIT (25 MCG) TABLET PO SCH (09:56)
[2020-03-25] MEDS: DEXAMETHASONE SOD PHOSPHATE 4 MG/1 ML VIAL IVPUSH SCH (09:56)
[2020-03-25] MEDS: GABAPENTIN PO SCH ×2 (09:56→21:55)
[2020-03-25] MEDS: ENOXAPARIN NA (PORCINE) 40 MG/0.4 ML DISP.SYRIN SQ SCH (09:56)
[2020-03-25] MEDS: PANTOPRAZOLE SODIUM 40 MG VIAL IVPUSH SCH (09:56)
[2020-03-25 15:08] VITALS: BMI 35.1
[2020-03-25] MEDS: REMDESIVIR 100 MG in SODIUM CHLORIDE 230 ML IVPB SCH (15:34)
[2020-03-25] MEDS: BENZOCAINE/MENTH/CETYLPYRD CL 1 EACH LOZENGE MM PRN ×2 (17:10→22:11)
[2020-03-25] MEDS: ACETAMINOPHEN 500 MG TABLET (FP) PO PRN (17:10)
[2020-03-25] MEDS: AMITRIPTYLINE HCL 10 MG TABLET PO SCH (21:54)
[2020-03-25] MEDS ORDERED: PT OWN MED DRAWER 7, Y5N ONE (21:54)
[2020-03-25] MEDS: guaiFENesin/D-METHORPHAN HB 10 ML UNIT-DOSE CUPS PO PRN (21:54)
[2020-03-25] MEDS: ATORVASTATIN CA 10 MG TABLET (FP) PO SCH (21:55)
[2020-03-25] MEDS: CYCLOBENZAPRINE HCL 10 MG TABLET (FP) PO PRN (22:11)
[2020-03-26] MEDS: INSULIN SLIDING SCALE (NOVOLOG) 1 VIAL SQ SCH ×3 (07:07→18:19)
[2020-03-26 07:57] LABS: BASO % 0.1 % (0-2.0); HEMATOCRIT 40.1 % (35.4-49); HEMOGLOBIN 13.7 GM/dL (11.7-16.9); LYMPH % 7.4 % (8-40); MCH 30.2 pg (25.7-33.7); MCHC 34.1 g/dl (32.0-35.9); MEAN CELL VOLUME 88.4 fl (80-96); MEAN PLT VOLUME 8.8 fl (7.5-11.1); MONO % 7.9 % (3.8-10.2); NEUT % 84.6 % (42.8-82.8); PLATELET COUNT 120 K/MM3 (134-434); RBC 4.54 M/mm3 (4.00-5.60); RDW 14.3 % (11.9-15.9); WHITE BLOOD COUNT 3.7 K/mm3 (4.0-10.0)
[2020-03-26 08:17] LABS: POTASSIUM 4.1 mmol/L (3.5-5.1)
[2020-03-26 08:22] LABS: ALBUMIN 3.2 g/dl (3.4-5.0); BLOOD UREA NITROGEN 19.8 mg/dL (7-18); CALCIUM 7.8 mg/dL (8.5-10.1); MAGNESIUM 1.8 mg/dL (1.8-2.4)
[2020-03-26 08:25] LABS: CREATININE 0.8 mg/dL (0.55-1.3)
[2020-03-26 08:26] LABS: BILIRUBIN,TOTAL 0.6 mg/dL (0.2-1); PHOSPHOROUS 2.9 mg/dL (2.5-4.9)
[2020-03-26] MEDS: CHOLECALCIFEROL (VIT D3) 1,000 UNIT (25 MCG) TABLET PO SCH (10:18)
[2020-03-26] MEDS: ENOXAPARIN NA (PORCINE) 40 MG/0.4 ML DISP.SYRIN SQ SCH (10:18)
[2020-03-26] MEDS: GABAPENTIN PO SCH ×2 (10:18→10:49)
[2020-03-26] MEDS: DEXAMETHASONE SOD PHOSPHATE 4 MG/1 ML VIAL IVPUSH SCH (10:18)
[2020-03-26] MEDS: PANTOPRAZOLE SODIUM 40 MG VIAL IVPUSH SCH (10:18)
[2020-03-26] MEDS: REMDESIVIR 100 MG in SODIUM CHLORIDE 230 ML IVPB SCH (10:19)
[2020-03-26] MEDS: BENZOCAINE/MENTH/CETYLPYRD CL 1 EACH LOZENGE MM PRN (10:50)
[2020-03-26 19:31] VITALS: BP 143/77; PULSE 75; TEMP 97.6
== END 2020-03-26 20:05 | disposition left against medical advice (07) | DRG 177 ==
LOC: JER 08:24 → JERBED 09:32 → J4W 21:56
PROVIDERS: ADMIT Internal Medicine; ATTEND Internal Medicine
PROC: XW13325 Transfusion of Convalescent Plasma (Nonautologous) into Peripheral Vein, Percutaneous Approach, New Technology Group 5 (ICD-10-PCS; principal; 2020-03-25)
PROC: XW033E5 Introduction of Remdesivir Anti-infective into Peripheral Vein, Percutaneous Approach, New Technology Group 5 (ICD-10-PCS; 2020-03-25)
DX: U07.1 COVID-19 (principal); J96.01 Acute respiratory failure with hypoxia; E66.9 Obesity, unspecified; Z68.35 Body mass index [BMI] 35.0-35.9, adult; G47.33 Obstructive sleep apnea (adult) (pediatric); E78.5 Hyperlipidemia, unspecified; D72.819 Decreased white blood cell count, unspecified; I10 Essential (primary) hypertension; K59.00 Constipation, unspecified; Z87.891 Personal history of nicotine dependence; Z96.651 Presence of right artificial knee joint
CPT/HCPCS: 36415; 36430; 71045-TC-FY; 80053; 82248; 82550; 82553; 82728; 82962; 83605; 83615; 83735; 84100; 84484; 85025; 85379; 85610; 85730; 86140; 86850; 86900; 86901; 87804; 87899; 90732; 93005; 93010; 99285-25; C9399; C9803; G0009; P9017; U0003

== ENCOUNTER 2020-03-28 11:59 | Inpatient (IN) | payer BC ==
[2020-03-28 16:36] LABS: BASO % 0.1 % (0-2.0); EOS % 0.2 % (0-4.5); HEMATOCRIT 42.4 % (35.4-49); HEMOGLOBIN 14.7 GM/dL (11.7-16.9); LYMPH % 10.1 % (8-40); MCH 30.6 pg (25.7-33.7); MCHC 34.6 g/dl (32.0-35.9); MEAN CELL VOLUME 88.3 fl (80-96); MEAN PLT VOLUME 8.2 fl (7.5-11.1); MONO % 13.2 % (3.8-10.2); NEUT % 76.4 % (42.8-82.8); PLATELET COUNT 180 K/MM3 (134-434); RDW 14.2 % (11.9-15.9); WHITE BLOOD COUNT 5.1 K/mm3 (4.0-10.0)
[2020-03-28] MEDS ORDERED: DEXAMETHASONE SOD PHOSPHATE 10 MG/1 ML VIAL IVPUSH ONE (16:39)
[2020-03-28 16:48] LABS: INR 1.09 (0.83-1.09); PROTHROMBIN TIME (PATIENT) 13.1 SEC (9.7-13.0)
[2020-03-28 16:51] LABS: ACTIVATED PTT 33.7 SECONDS (25.2-36.5)
[2020-03-28] MEDS ORDERED: DEXAMETHASONE SOD PHOSPHATE 10 MG/1 ML VIAL ONE (16:56)
[2020-03-28 17:06] LABS: CHLORIDE 106 mmol/L (98-107); SODIUM 142 mmol/L (136-145)
[2020-03-28 17:08] LABS: CALCIUM 8.2 mg/dL (8.5-10.1)
[2020-03-28 17:09] LABS: ALBUMIN 3.3 g/dl (3.4-5.0); ANION GAP 10 MMOL/L (8-16); CO2 25 mmol/L (21-32); GLUCOSE,RANDOM 86 mg/dL (74-106)
[2020-03-28 17:12] LABS: CREATININE 0.7 mg/dL (0.55-1.3); SGOT/AST 48 U/L (15-37); SGPT/ALT 63 U/L (13-61)
[2020-03-28 17:13] LABS: LDH 338 U/L (87-246)
[2020-03-28 17:14] LABS: TOT PROT 6.3 g/dl (6.4-8.2)
[2020-03-28 17:15] LABS: ALK PHOS 87 U/L (45-117)
[2020-03-28] MEDS ORDERED: DEXAMETHASONE SOD PHOSPHATE 4 MG/1 ML VIAL ONE (17:18)
[2020-03-29] MEDS ORDERED: ACETAMINOPHEN 500 MG TABLET (FP) PO PRN (06:09)
[2020-03-29] MEDS ORDERED: CYCLOBENZAPRINE HCL 10 MG TABLET (FP) ONE (06:21)
[2020-03-29] MEDS: CYCLOBENZAPRINE HCL 10 MG TABLET (FP) PO SCH ×3 (06:29→22:36)
[2020-03-29 09:45] LABS: URINE APPEARANCE CLEAR; URINE BILIRUBIN NEGATIVE (NEGATIVE); URINE COLOR YELLOW; URINE GLUCOSE (UA) NEGATIVE (NEGATIVE); URINE KETONE TRACE (NEGATIVE); URINE LEUK ESTERASE NEGATIVE (NEGATIVE); URINE NITRITE NEGATIVE (NEGATIVE); URINE PROTEIN TRACE (NEGATIVE)
[2020-03-29 09:48] LABS: BASO % 0.1 % (0-2.0); HEMATOCRIT 40.7 % (35.4-49); LYMPH % 7.7 % (8-40); MCH 30.4 pg (25.7-33.7); MCHC 34.4 g/dl (32.0-35.9); MEAN CELL VOLUME 88.2 fl (80-96); MEAN PLT VOLUME 8.2 fl (7.5-11.1); MONO % 6.5 % (3.8-10.2); NEUT % 85.7 % (42.8-82.8); PLATELET COUNT 211 K/MM3 (134-434); RBC 4.62 M/mm3 (4.00-5.60); RDW 14.1 % (11.9-15.9); WHITE BLOOD COUNT 3.9 K/mm3 (4.0-10.0)
[2020-03-29] MEDS: DEXAMETHASONE SOD PHOSPHATE 4 MG/1 ML VIAL IVPUSH SCH (10:00)
[2020-03-29] MEDS: LISINOPRIL 10 MG TABLET PO SCH ×2 (10:00→22:36)
[2020-03-29] MEDS: ZINC SULFATE 220 MG CAPSULE (FP) PO SCH (10:00)
[2020-03-29] MEDS: LIDOCAINE 5% TOPICAL PATCH TP SCH (10:00)
[2020-03-29] MEDS: GABAPENTIN 300 MG CAPSULE PO SCH ×4 (10:00→22:36)
[2020-03-29] MEDS: CELECOXIB 200 MG CAPSULE PO SCH ×2 (10:00→23:34)
[2020-03-29] MEDS: ENOXAPARIN NA (PORCINE) 40 MG/0.4 ML DISP.SYRIN SQ SCH (10:00)
[2020-03-29] MEDS: FAMOTIDINE 20 MG TABLET PO SCH (10:00)
[2020-03-29 10:01] LABS: INR 1.08 (0.83-1.09); PROTHROMBIN TIME (PATIENT) 13.2 SEC (9.7-13.0)
[2020-03-29 10:03] LABS: ACTIVATED PTT 29.6 SECONDS (25.2-36.5)
[2020-03-29 10:03] LABS: EPI CELLS 8 /uL (0-25.1); HYALINE CASTS 1 /uL (0-3.1); URINE BACTERIA 12 /uL (0-1359); URINE RBC 8 /uL (0-23.9); URINE WBC 3 /uL (0-25.8)
[2020-03-29] MEDS: DOXYCYCLINE MONOHYDRATE 100 MG PO SCH (10:09)
[2020-03-29] MEDS ORDERED: LIDOCAINE 5% TOPICAL PATCH ONE (10:10)
[2020-03-29] MEDS ORDERED: FAMOTIDINE 20 MG TABLET ONE (10:10)
[2020-03-29] MEDS ORDERED: ZINC SULFATE 220 MG CAPSULE (FP) ONE (10:10)
[2020-03-29] MEDS ORDERED: LISINOPRIL 5 MG TABLET ONE (10:10)
[2020-03-29] MEDS ORDERED: ENOXAPARIN NA (PORCINE) 40 MG/0.4 ML DISP.SYRIN SQ ONE (10:11)
[2020-03-29 10:13] LABS: ALBUMIN 3.2 g/dl (3.4-5.0); BLOOD UREA NITROGEN 17.8 mg/dL (7-18); CALCIUM 8.1 mg/dL (8.5-10.1); MAGNESIUM 2.1 mg/dL (1.8-2.4)
[2020-03-29 10:16] LABS: CREATININE 0.8 mg/dL (0.55-1.3)
[2020-03-29 10:17] LABS: PHOSPHOROUS 3.4 mg/dL (2.5-4.9)
[2020-03-29 10:18] LABS: BILIRUBIN,TOTAL 1.2 mg/dL (0.2-1); TOT PROT 6.3 g/dl (6.4-8.2)
[2020-03-29] MEDS: ASCORBIC ACID 500 MG TABLET (FP) PO SCH ×2 (10:59→22:35)
[2020-03-29] MEDS: CHOLECALCIFEROL (VIT D3) 1,000 UNIT (25 MCG) TABLET PO SCH (10:59)
[2020-03-29 13:58] VITALS: BMI 33.0
[2020-03-29] MEDS ORDERED: PT OWN MED DRAWER 7, Y5N ONE ×2 (14:56→23:20)
[2020-03-29] MEDS: BUDESONIDE/FORMETEROL FUMARATE 160/4.5 mcg INHALER IH SCH ×2 (15:31→23:36)
[2020-03-29] MEDS: ATORVASTATIN CA 10 MG TABLET (FP) PO SCH (22:36)
[2020-03-29] MEDS: AMITRIPTYLINE HCL 10 MG TABLET PO SCH (23:34)
[2020-03-29] MEDS: LIDOCAINE PATCH REMOVAL MC SCH (23:38)
[2020-03-30] MEDS: CYCLOBENZAPRINE HCL 10 MG TABLET (FP) PO SCH ×3 (05:26→21:00)
[2020-03-30] MEDS: LIDOCAINE 5% TOPICAL PATCH TP SCH (09:42)
[2020-03-30] MEDS: ASCORBIC ACID 500 MG TABLET (FP) PO SCH ×2 (09:42→21:00)
[2020-03-30] MEDS: GABAPENTIN 300 MG CAPSULE PO SCH ×5 (09:42→21:01)
[2020-03-30] MEDS: ZINC SULFATE 220 MG CAPSULE (FP) PO SCH (09:42)
[2020-03-30] MEDS: LISINOPRIL 10 MG TABLET PO SCH ×2 (09:42→21:01)
[2020-03-30] MEDS: DEXAMETHASONE SOD PHOSPHATE 4 MG/1 ML VIAL IVPUSH SCH (09:42)
[2020-03-30] MEDS: CHOLECALCIFEROL (VIT D3) 1,000 UNIT (25 MCG) TABLET PO SCH (09:42)
[2020-03-30] MEDS: FAMOTIDINE 20 MG TABLET PO SCH (09:43)
[2020-03-30] MEDS: ENOXAPARIN NA (PORCINE) 40 MG/0.4 ML DISP.SYRIN SQ SCH (09:43)
[2020-03-30] MEDS: BUDESONIDE/FORMETEROL FUMARATE 160/4.5 mcg INHALER IH SCH ×2 (09:43→21:04)
[2020-03-30] MEDS: CELECOXIB 200 MG CAPSULE PO SCH ×2 (09:51→21:00)
[2020-03-30] MEDS: DOXYCYCLINE MONOHYDRATE 100 MG PO SCH ×2 (12:10→12:11)
[2020-03-30] MEDS: REMDESIVIR 100 MG in SODIUM CHLORIDE 230 ML IVPB SCH (14:05)
[2020-03-30] MEDS ORDERED: PT OWN MED DRAWER 7, Y5N ONE (20:26)
[2020-03-30] MEDS: ATORVASTATIN CA 10 MG TABLET (FP) PO SCH (21:01)
[2020-03-30] MEDS: AMITRIPTYLINE HCL 10 MG TABLET PO SCH (21:01)
[2020-03-30] MEDS: LIDOCAINE PATCH REMOVAL MC SCH (21:02)
[2020-03-31] MEDS: CYCLOBENZAPRINE HCL 10 MG TABLET (FP) PO SCH ×3 (05:18→21:31)
[2020-03-31] MEDS: GABAPENTIN 300 MG CAPSULE PO SCH ×5 (10:11→21:31)
[2020-03-31] MEDS: ZINC SULFATE 220 MG CAPSULE (FP) PO SCH (10:11)
[2020-03-31] MEDS: ENOXAPARIN NA (PORCINE) 40 MG/0.4 ML DISP.SYRIN SQ SCH (10:11)
[2020-03-31] MEDS: CHOLECALCIFEROL (VIT D3) 1,000 UNIT (25 MCG) TABLET PO SCH (10:11)
[2020-03-31] MEDS: ASCORBIC ACID 500 MG TABLET (FP) PO SCH ×2 (10:11→21:31)
[2020-03-31] MEDS: LISINOPRIL 10 MG TABLET PO SCH ×2 (10:11→21:31)
[2020-03-31] MEDS: DEXAMETHASONE SOD PHOSPHATE 4 MG/1 ML VIAL IVPUSH SCH (10:12)
[2020-03-31] MEDS: FAMOTIDINE 20 MG TABLET PO SCH (10:13)
[2020-03-31 10:15] LABS: BASO % 0.2 % (0-2.0); EOS % 0.1 % (0-4.5); HEMATOCRIT 40.4 % (35.4-49); HEMOGLOBIN 14.2 GM/dL (11.7-16.9); MCH 30.8 pg (25.7-33.7); MCHC 35.1 g/dl (32.0-35.9); MEAN CELL VOLUME 87.8 fl (80-96); MEAN PLT VOLUME 8.3 fl (7.5-11.1); MONO % 6.2 % (3.8-10.2); NEUT % 85.5 % (42.8-82.8); PLATELET COUNT 306 K/MM3 (134-434); RDW 14.3 % (11.9-15.9); WHITE BLOOD COUNT 6.2 K/mm3 (4.0-10.0)
[2020-03-31] MEDS: LIDOCAINE 5% TOPICAL PATCH TP SCH ×2 (10:28→10:37)
[2020-03-31] MEDS: CELECOXIB 200 MG CAPSULE PO SCH ×2 (10:28→21:32)
[2020-03-31] MEDS: BUDESONIDE/FORMETEROL FUMARATE 160/4.5 mcg INHALER IH SCH ×2 (10:33→21:35)
[2020-03-31 10:54] LABS: ALBUMIN 3.1 g/dl (3.4-5.0); CREATININE 0.9 mg/dL (0.55-1.3); PHOSPHOROUS 2.8 mg/dL (2.5-4.9)
[2020-03-31 10:55] LABS: TOT PROT 6.3 g/dl (6.4-8.2)
[2020-03-31 10:56] LABS: CALCIUM 8.4 mg/dL (8.5-10.1)
[2020-03-31 11:07] LABS: BILIRUBIN,TOTAL 1.2 mg/dL (0.2-1)
[2020-03-31] MEDS: REMDESIVIR 100 MG in SODIUM CHLORIDE 230 ML IVPB SCH (16:18)
[2020-03-31] MEDS: ATORVASTATIN CA 10 MG TABLET (FP) PO SCH (21:31)
[2020-03-31] MEDS: AMITRIPTYLINE HCL 10 MG TABLET PO SCH (21:32)
[2020-03-31] MEDS: LIDOCAINE PATCH REMOVAL MC SCH (21:33)
[2020-03-31] MEDS ORDERED: PT OWN MED DRAWER 7, Y5N ONE (22:29)
[2020-04-01] MEDS: CYCLOBENZAPRINE HCL 10 MG TABLET (FP) PO SCH ×3 (05:21→13:53)
[2020-04-01 08:28] LABS: BASO % 0.3 % (0-2.0); EOS % 0.2 % (0-4.5); HEMATOCRIT 41.3 % (35.4-49); HEMOGLOBIN 14.2 GM/dL (11.7-16.9); LYMPH % 6.3 % (8-40); MCH 30.6 pg (25.7-33.7); MCHC 34.4 g/dl (32.0-35.9); MEAN CELL VOLUME 89.1 fl (80-96); MEAN PLT VOLUME 8.3 fl (7.5-11.1); MONO % 8.8 % (3.8-10.2); NEUT % 84.4 % (42.8-82.8); PLATELET COUNT 326 K/MM3 (134-434); RBC 4.63 M/mm3 (4.00-5.60); RDW 14.2 % (11.9-15.9); WHITE BLOOD COUNT 8.3 K/mm3 (4.0-10.0)
[2020-04-01 09:04] LABS: CHLORIDE 105 mmol/L (98-107); SODIUM 139 mmol/L (136-145)
[2020-04-01 09:15] LABS: ALBUMIN 3.3 g/dl (3.4-5.0); ANION GAP 5 MMOL/L (8-16); BLOOD UREA NITROGEN 19.6 mg/dL (7-18); CALCIUM 8.7 mg/dL (8.5-10.1); CO2 28 mmol/L (21-32); GLUCOSE,RANDOM 83 mg/dL (74-106); MAGNESIUM 2.1 mg/dL (1.8-2.4)
[2020-04-01 09:18] LABS: BILIRUBIN,TOTAL 1.3 mg/dL (0.2-1); CREATININE 0.8 mg/dL (0.55-1.3); PHOSPHOROUS 3.4 mg/dL (2.5-4.9); SGOT/AST 15 U/L (15-37); SGPT/ALT 46 U/L (13-61)
[2020-04-01 09:19] LABS: TOT PROT 6.5 g/dl (6.4-8.2)
[2020-04-01 09:20] LABS: ALK PHOS 79 U/L (45-117)
[2020-04-01] MEDS ORDERED: PT OWN MED DRAWER 7, Y5N ONE (10:02)
[2020-04-01] MEDS: ZINC SULFATE 220 MG CAPSULE (FP) PO SCH (10:21)
[2020-04-01] MEDS: LISINOPRIL 10 MG TABLET PO SCH (10:21)
[2020-04-01] MEDS: ASCORBIC ACID 500 MG TABLET (FP) PO SCH (10:21)
[2020-04-01] MEDS: GABAPENTIN 300 MG CAPSULE PO SCH ×3 (10:22→13:53)
[2020-04-01] MEDS: DEXAMETHASONE SOD PHOSPHATE 4 MG/1 ML VIAL IVPUSH SCH (10:22)
[2020-04-01] MEDS: LIDOCAINE 5% TOPICAL PATCH TP SCH ×2 (10:22→10:35)
[2020-04-01] MEDS: CELECOXIB 200 MG CAPSULE PO SCH (10:22)
[2020-04-01] MEDS: ENOXAPARIN NA (PORCINE) 40 MG/0.4 ML DISP.SYRIN SQ SCH (10:22)
[2020-04-01] MEDS: BUDESONIDE/FORMETEROL FUMARATE 160/4.5 mcg INHALER IH SCH (10:23)
[2020-04-01] MEDS: FAMOTIDINE 20 MG TABLET PO SCH (10:23)
[2020-04-01] MEDS: CHOLECALCIFEROL (VIT D3) 1,000 UNIT (25 MCG) TABLET PO SCH (10:23)
[2020-04-01 11:13] VITALS: BP 162/77; PULSE 72; TEMP 97.7
[2020-04-01 11:54] LABS: ANISOCYTOSIS 0; MACROCYTOSIS 0
== END 2020-04-01 14:07 | disposition home or self-care (01) | DRG 177 ==
LOC: JER 11:59 → JERBED 18:06 → J8W 03-29 10:40
PROVIDERS: ADMIT Internal Medicine; ATTEND Internal Medicine
PROC: XW033E5 Introduction of Remdesivir Anti-infective into Peripheral Vein, Percutaneous Approach, New Technology Group 5 (ICD-10-PCS; principal; 2020-03-30)
DX: U07.1 COVID-19 (principal); J12.82 Pneumonia due to coronavirus disease 2019; J96.01 Acute respiratory failure with hypoxia; I10 Essential (primary) hypertension; G47.33 Obstructive sleep apnea (adult) (pediatric); E78.5 Hyperlipidemia, unspecified; E66.9 Obesity, unspecified; Z68.33 Body mass index [BMI] 33.0-33.9, adult; Z98.84 Bariatric surgery status; Z96.651 Presence of right artificial knee joint
CPT/HCPCS: 36415; 71045-TC-FY; 80053; 81003; 82550; 82728; 82962; 83615; 83735; 84100; 84484; 85025; 85379; 85384; 85610; 85730; 86140; 86850; 86900; 86901; 87040; 87086; 87804; 93005; 93010; 94761; 97116-GP; 97161-GP; 99285-25; C9399; C9803; J1100; U0003